=== PATIENT | male | born 1990 | race Caucasian/White ===

== ENCOUNTER 2018-12-21 13:04 | Emergency (ER) | payer OTHER ==
--- NOTE | 2018-12-21 13:51 | EDPHYS ---
Physician Documentation [facility] Name: Wyatt Gleason Age: 28 yrs Sex: Male : 1990 Arrival Date: 12/21/2018 Time: 13:08 Bed 9 Private MD: ED Physician Adam Tamayo HPI: 12/21 13:48 This 28 yrs old Male presents to ER via Ambulatory with complaints of jr8 Shoulder Pain. 13:48 The patient or guardian complains of pain, tenderness. right shoulder. Context: The jr8 problem was sustained at an unknown site, resulted from lifting or carrying, The patient reports no decreased range of motion. The patient reports no obvious deformity. Onset: The symptoms/episode began/occurred acutely, today. Modifying factors: the symptoms are alleviated by nothing. The symptoms are aggravated by movement. Associated signs and symptoms: The patient has no apparent associated signs or symptoms. Severity of symptoms: At their worst the symptoms were mild, in the emergency department the symptoms are unchanged. The patient has not experienced similar symptoms in the past. The patient has not recently seen a physician. Stated that while at work felt a pulling sensation in right shoulder. Pain since then. Denies numbness, tingling, weakness. Historical: - Allergies: 13:19 No Known Allergies; aa5 - Home Meds: 13:19 None [Active]; aa5 - PMHx: 13:19 None; aa5 - PSHx: 13:19 None; aa5 - Immunization history:: Adult Immunizations up to date. - Social history:: Smoking status: Patient uses tobacco products, smokes one-half pack cigarettes per day. - Ebola Screening: : No symptoms or risks identified at this time. ROS: 13:48 Eyes: Negative for injury, pain, redness, and discharge, ENT: Negative for injury, jr8 pain, and discharge, Neck: Negative for injury, pain, and swelling, Cardiovascular: Negative for chest pain, palpitations, and edema, Respiratory: Negative for shortness of breath, cough, wheezing, and pleuritic chest pain, Abdomen/GI: Negative for abdominal pain, nausea, vomiting, diarrhea, and constipation, Back: Negative for injury and pain, Skin: Negative for injury, rash, and discoloration, Neuro: Negative for headache, weakness, numbness, tingling, and seizure. 13:48 MS/extremity: Positive for pain, tenderness, of the right shoulder. Exam: 13:48 Eyes: Pupils equal round and reactive to light, extra-ocular motions intact. Lids and jr8 lashes normal. Conjunctiva and sclera are non-icteric and not injected. Cornea within normal limits. Periorbital areas with no swelling, redness, or edema. ENT: Nares patent. No nasal discharge, no septal abnormalities noted. Tympanic membranes are normal and external auditory canals are clear. Oropharynx with no redness, swelling, or masses, exudates, or evidence of obstruction, uvula midline. Mucous membranes moist. Neck: Trachea midline, no thyromegaly or masses palpated, and no cervical lymphadenopathy. Supple, full range of motion without nuchal rigidity, or vertebral point tenderness. No Meningismus. Cardiovascular: Regular rate and rhythm with a normal S1 and S2. No gallops, murmurs, or rubs. Normal PMI, no JVD. No pulse deficits. Respiratory: Lungs have equal breath sounds bilaterally, clear to auscultation and percussion. No rales, rhonchi or wheezes noted. No increased work of breathing, no retractions or nasal flaring. Abdomen/GI: Soft, non-tender, with normal bowel sounds. No distension or tympany. No guarding or rebound. No evidence of tenderness throughout. Back: No spinal tenderness. No costovertebral tenderness. Full range of motion. Skin: Warm, dry with normal turgor. Normal color with no rashes, no lesions, and no evidence of cellulitis. MS/ Extremity: Pulses equal, no cyanosis. Neurovascular intact. Full, normal range of motion. Mild pain to palpation of the anterior right shoulder Neuro: Awake and alert, GCS 15, oriented to person, place, time, and situation. Cranial nerves II-XII grossly intact. Motor strength 5/5 in all extremities. Sensory grossly intact. Cerebellar exam normal. Normal gait. Vital Signs: 13:19 BP 130 / 77; Pulse 75; Resp 16 S; Temp 97.6(TE); Pulse Ox 98% on R/A; Weight 96.16 kg aa5 (R); Height 5 ft. 9 in. (175.26 cm) (R); Pain 9/10; 13:19 Body Mass Index 31.31 (96.16 kg, 175.26 cm) aa5 MDM: 13:39 Patient medically screened. jr8 13:49 Data reviewed: vital signs, nurses notes, and as a result, I will discharge patient. jr8 Data interpreted: Pulse oximetry: on room air is 98 %. Interpretation: normal. Counseling: I had a detailed discussion with the patient and/or guardian regarding: the historical points, exam findings, and any diagnostic results supporting the discharge/admit diagnosis, the need for outpatient follow up, a orthopedic surgeon, to return to the emergency department if symptoms worsen or persist or if there are any questions or concerns that arise at home. ED course: No traumatic injury per patient. Most likely muscular strain to girdle of right shoulder. Will try NSAIDS for now and no heavy lifting for next week. If worse to come back. Otherwise needs to f/u with Orthopedics. Administered Medications: 14:10 Drug: TORadol - Ketorolac 15 mg Route: IM; Site: right deltoid; iw Disposition: 15:41 Co-signature as Attending Physician, Adam Tamayo MD I agree with the assessment and shari plan of care. Disposition: 12/21/18 13:51 Discharged to Home. Impression: Strain of muscle(s) and tendon(s) of the rotator cuff of right shoulder. - Condition is Stable. - Discharge Instructions: Muscle Strain. - Prescriptions for Mobic 15 mg Oral tablet - take 1 tablet by ORAL route once daily As needed; 20 tablet. - Work release form, Medication Reconciliation Form, Thank You Letter, Antibiotic Education, Prescription Opioid Use form. - Follow up: Gael Bingham MD; When: 7 - 10 days; Reason: If symptoms return, Recheck today's complaints, Continuance of care, Re-evaluation by your physician. - Problem is new. - Symptoms have improved. Signatures: Adam Tamayo MD MD cha Williams, Irene RN RN Malka Ho RN RN aa5 Marvin Quezada PA PA jr8 Corrections: (The following items were deleted from the chart) 14:30 13:51 12/21/2018 13:51 Discharged to Home. Impression: Strain of muscle(s) and iw tendon(s) of the rotator cuff of right shoulder. Condition is Stable. Forms are Medication Reconciliation Form, Thank You Letter, Antibiotic Education, Prescription Opioid Use. Follow up: Dr. Gael Bingham; When: 7 - 10 days; Reason: If symptoms return, Recheck today's complaints, Continuance of care, Re-evaluation by your physician. Problem is new. Symptoms have improved. jr8
--- NOTE | 2018-12-21 13:51 | ER ---
Nurse's Notes [facility] Name: Wyatt Gleason Age: 28 yrs Sex: Male : 1990 Arrival Date: 12/21/2018 Time: 13:08 Bed 9 Private MD: Diagnosis: Strain of muscle(s) and tendon(s) of the rotator cuff of right shoulder Presentation: 12/21 13:18 Presenting complaint: Patient states: right shoulder pain that began 4 or 5 days ago. aa5 Pt states "I was lifting some boxes today and I think I made the pain worse". Transition of care: patient was not received from another setting of care. Onset of symptoms was November 2018. Risk Assessment: Do you want to hurt yourself or someone else? Patient reports no desire to harm self or others. Initial Sepsis Screen: Does the patient meet any 2 criteria? No. Patient's initial sepsis screen is negative. Does the patient have a suspected source of infection? No. Patient's initial sepsis screen is negative. Care prior to arrival: None. 13:18 Method Of Arrival: Ambulatory aa5 13:18 Acuity: ERNESTO 4 aa5 Triage Assessment: 14:29 General: Appears in no apparent distress. Behavior is calm, cooperative. iw Historical: - Allergies: 13:19 No Known Allergies; aa5 - Home Meds: 13:19 None [Active]; aa5 - PMHx: 13:19 None; aa5 - PSHx: 13:19 None; aa5 - Immunization history:: Adult Immunizations up to date. - Social history:: Smoking status: Patient uses tobacco products, smokes one-half pack cigarettes per day. - Ebola Screening: : No symptoms or risks identified at this time. Screenin:29 Abuse screen: Denies threats or abuse. Denies injuries from another. Nutritional iw screening: No deficits noted. Tuberculosis screening: No symptoms or risk factors identified. Fall Risk None identified. Assessment: 14:00 General: Appears in no apparent distress. Behavior is calm, cooperative. Pain: iw Complains of pain in right shoulder. Neuro: Level of Consciousness is awake, alert, obeys commands, Moves all extremities. Cardiovascular: Patient's skin is warm and dry. Respiratory: Airway is patent Respiratory effort is even, unlabored. Derm: Skin is intact, is healthy with good turgor. Musculoskeletal: Range of motion: intact in all extremities, Reports pain in right shoulder. Vital Signs: 13:19 BP 130 / 77; Pulse 75; Resp 16 S; Temp 97.6(TE); Pulse Ox 98% on R/A; Weight 96.16 kg aa5 (R); Height 5 ft. 9 in. (175.26 cm) (R); Pain 9/10; 13:19 Body Mass Index 31.31 (96.16 kg, 175.26 cm) aa ED Course: 13:08 Patient arrived in ED. mr 13:17 Arm band placed on. aa5 13:18 Triage completed. aa5 13:39 Marvin Quezada PA is PHCP. jr8 13:39 Adam Tamayo MD is Attending Physician. jr8 13:51 Gael Bingham MD is Referral Physician. jr8 13:59 Lakesha Peña, RN is Primary Nurse. iw 14:00 Patient has correct armband on for positive identification. iw 14:29 No provider procedures requiring assistance completed. Patient did not have IV access iw during this emergency room visit. Administered Medications: 14:10 Drug: TORadol - Ketorolac 15 mg Route: IM; Site: right deltoid; iw Outcome: 13:51 Discharge ordered by . jr8 14:29 Discharged to home ambulatory, with friend. iw 14:29 Condition: good 14:29 Discharge instructions given to patient, friend, Instructed on discharge instructions, follow up and referral plans. medication usage, Demonstrated understanding of instructions, follow-up care, medications, Prescriptions given X 1. 14:30 Patient left the ED. iw Signatures: Elizabet Rain mr Lakesha Peña, RN RN iw Malka Strauss RN RN aa Marvin Quezada PA PA jr8
[2018-12-21] MEDS ORDERED: KETOROLAC 30 MG/ML INJ ONE (14:17)
== END 2018-12-21 14:30 | disposition home or self-care (01) ==
LOC: ER 13:04
DX: S46.011A Strain of muscle(s) and tendon(s) of the rotator cuff of right shoulder, initial encounter (principal); X50.9XXA Other and unspecified overexertion or strenuous movements or postures, initial encounter; F17.210 Nicotine dependence, cigarettes, uncomplicated
CPT/HCPCS: 96372; 99283

== ENCOUNTER 2019-01-02 14:57 | Emergency (ER) | payer OTHER ==
--- OUTSIDE RECORDS SUMMARY | 2019-01-02 15:11 | XMS REPORT ---
:1990 [facility] [address] [place] [address] [address] Care Team Providers Name Role Phone Unavailable Unavailable Unavailable Problems This patient has no known problems. Allergies, Adverse Reactions, Alerts This patient has no known allergies or adverse reactions. Medications This patient has no known medications.
--- NOTE | 2019-01-02 15:24 | ER ---
Nurse's Notes [facility] Name: Wyatt Gleason Age: 28 yrs Sex: Male : 1990 Arrival Date: 01/02/2019 Time: 14:59 Bed 15 Private MD: Diagnosis: Pain in right shoulder Presentation: 01/02 15:03 Presenting complaint: Patient states: Right arm and shoulder pain for 2 weeks. Seen in aj this ER for same complaint, missed follow up appointment. Full ROM noted in triage. Transition of care: patient was not received from another setting of care. Onset of symptoms was December 12, 2018. Care prior to arrival: None. 15:03 Method Of Arrival: Ambulatory 15:03 Acuity: ERNESTO 5 15:05 Risk Assessment: Do you want to hurt yourself or someone else? Patient reports no hj desire to harm self or others. Initial Sepsis Screen: Does the patient meet any 2 criteria? No. Patient's initial sepsis screen is negative. Does the patient have a suspected source of infection? No. Patient's initial sepsis screen is negative. Triage Assessment: 15:05 General: Appears in no apparent distress. comfortable, Behavior is calm, cooperative, aj appropriate for age. Pain: Complains of pain in right arm. Neuro: Level of Consciousness is awake, alert, obeys commands, Oriented to person, place, time, situation, Appropriate for age. Respiratory: Airway is patent Respiratory effort is even, unlabored, Respiratory pattern is regular, symmetrical. Derm: Skin is intact, is healthy with good turgor, Skin is pink, warm \T\ dry. normal. Musculoskeletal: Reports pain in right arm. Historical: - Allergies: 15:05 No Known Allergies; aj - Immunization history:: Adult Immunizations unknown. - Social history:: Smoking status: Patient uses tobacco products, Patient uses alcohol. - Ebola Screening: : Patient negative for fever greater than or equal to 101.5 degrees Fahrenheit, and additional compatible Ebola Virus Disease symptoms Patient denies exposure to infectious person Patient denies travel to an Ebola-affected area in the 21 days before illness onset. Screenin:17 Abuse screen: Denies threats or abuse. Denies injuries from another. Nutritional hj screening: No deficits noted. Tuberculosis screening: No symptoms or risk factors identified. Fall Risk None identified. Assessment: 15:05 General: Appears in no apparent distress. uncomfortable, Behavior is calm, cooperative, hj appropriate for age. Pain: Complains of pain in right arm. Neuro: Level of Consciousness is awake, alert, obeys commands, Oriented to person, place, time, situation, Appropriate for age. Cardiovascular: Capillary refill < 3 seconds Patient's skin is warm and dry. Respiratory: Airway is patent Respiratory effort is even, unlabored, Respiratory pattern is regular, symmetrical. GI: No signs and/or symptoms were reported involving the gastrointestinal system. : No signs and/or symptoms were reported regarding the genitourinary system. EENT: No signs and/or symptoms were reported regarding the EENT system. Derm: No signs and/or symptoms reported regarding the dermatologic system. Musculoskeletal: No signs and/or symptoms reported regarding the musculoskeletal system. Vital Signs: 15:05 BP 149 / 88; Pulse 91; Resp 16; Temp 98.2; Pulse Ox 98% on R/A; Weight 95.25 kg; Height aj 5 ft. 9 in. (175.26 cm); 15:28 BP 140 / 85; Pulse 89; Resp 18; Pulse Ox 100% on R/A; hj 15:05 Body Mass Index 31.01 (95.25 kg, 175.26 cm) aj ED Course: 14:59 Patient arrived in ED. tw3 15:05 Triage completed. aj 15:05 Arm band placed on left wrist. Patient placed in an exam room. aj 15:05 Patient has correct armband on for positive identification. Bed in low position. Call hj light in reach. Side rails up X 1. 15:08 Rhona Jackson FNP-C is [facility]. kb 15:08 Adam Tamayo MD is Attending Physician. kb 15:10 Garcia Middleton, MESFIN is Primary Nurse. hj 15:23 Sling applied to right arm. jb1 15:27 No provider procedures requiring assistance completed. Patient did not have IV access hj during this emergency room visit. Administered Medications: No medications were administered Outcome: 15:24 Discharge ordered by . kb 15:28 Discharged to home ambulatory, with family. hj 15:28 Condition: stable 15:28 Discharge instructions given to patient, family, Instructed on discharge instructions, follow up and referral plans. medication usage, Demonstrated understanding of instructions, follow-up care, medications, Prescriptions given X 1. 15:28 Patient left the ED. hj Signatures: Johnathan Petty jb1 Rhona Jackson, ELIJAH RICKETTS-Ellie Martinez, RN RN Garcia Burris RN RN Angie Manning tw3
--- NOTE | 2019-01-02 15:25 | EDPHYS ---
Physician Documentation [facility] Name: Wyatt Gleason Age: 28 yrs Sex: Male : 1990 Arrival Date: 01/02/2019 Time: 14:59 Bed 15 Private MD: ED Physician Adam Tamayo HPI: 01/02 15:23 This 28 yrs old Male presents to ER via Ambulatory with complaints of kb Shoulder Pain. 15:23 The patient or guardian complains of pain, that is acute, tenderness. right shoulder. kb Context: The problem was sustained at an unknown site, resulted from an unknown reason, The patient reports no decreased range of motion. The patient reports no obvious deformity. Onset: The symptoms/episode began/occurred 2 week(s) ago. Modifying factors: the symptoms are alleviated by nothing. The symptoms are aggravated by raising arm all the way up. Associated signs and symptoms: The patient has no apparent associated signs or symptoms. Severity of symptoms: At their worst the symptoms were moderate, in the emergency department the symptoms are unchanged. Treatment prior to arrival includes: no previous treatment. The patient has not experienced similar symptoms in the past. The patient has been recently seen at the [facility] Emergency Department, a couple of weeks ago, for similar complaints. Historical: - Allergies: 15:05 No Known Allergies; aj - Immunization history:: Adult Immunizations unknown. - Social history:: Smoking status: Patient uses tobacco products, Patient uses alcohol. - Ebola Screening: : Patient negative for fever greater than or equal to 101.5 degrees Fahrenheit, and additional compatible Ebola Virus Disease symptoms Patient denies exposure to infectious person Patient denies travel to an Ebola-affected area in the 21 days before illness onset. ROS: 15:18 Constitutional: Negative for fever, chills, and weight loss, Cardiovascular: Negative kb for chest pain, palpitations, and edema, Respiratory: Negative for shortness of breath, cough, wheezing, and pleuritic chest pain, Abdomen/GI: Negative for abdominal pain, nausea, vomiting, diarrhea, and constipation, Skin: Negative for injury, rash, and discoloration, Neuro: Negative for headache, weakness, numbness, tingling, and seizure. 15:18 MS/extremity: Positive for pain, tenderness, of the anterior aspect of right shoulder. Exam: 15:18 Constitutional: This is a well developed, well nourished patient who is awake, alert, kb and in no acute distress. Head/Face: Normocephalic, atraumatic. Chest/axilla: Normal chest wall appearance and motion. Nontender with no deformity. No lesions are appreciated. Cardiovascular: Regular rate and rhythm with a normal S1 and S2. No gallops, murmurs, or rubs. Normal PMI, no JVD. No pulse deficits. Respiratory: Lungs have equal breath sounds bilaterally, clear to auscultation and percussion. No rales, rhonchi or wheezes noted. No increased work of breathing, no retractions or nasal flaring. Abdomen/GI: Soft, non-tender, with normal bowel sounds. No distension or tympany. No guarding or rebound. No evidence of tenderness throughout. Skin: Warm, dry with normal turgor. Normal color with no rashes, no lesions, and no evidence of cellulitis. Neuro: Awake and alert, GCS 15, oriented to person, place, time, and situation. Cranial nerves II-XII grossly intact. Motor strength 5/5 in all extremities. Sensory grossly intact. Cerebellar exam normal. Normal gait. 15:18 Musculoskeletal/extremity: Extremities: grossly normal except: noted in the anterior aspect of right shoulder: pain, tenderness, ROM: full active range of motion, in all extremities, limited active range of motion due to pain, in the anterior aspect of right shoulder, Circulation is intact in all extremities. Sensation intact. Vital Signs: 15:05 BP 149 / 88; Pulse 91; Resp 16; Temp 98.2; Pulse Ox 98% on R/A; Weight 95.25 kg; Height aj 5 ft. 9 in. (175.26 cm); 15:28 BP 140 / 85; Pulse 89; Resp 18; Pulse Ox 100% on R/A; 15:05 Body Mass Index 31.01 (95.25 kg, 175.26 cm) [facility]: 15:09 Patient medically screened. kb 15:19 Data reviewed: vital signs, nurses notes. Data interpreted: Pulse oximetry: on room air kb is 98 %. Interpretation: normal. Counseling: I had a detailed discussion with the patient and/or guardian regarding: the historical points, exam findings, and any diagnostic results supporting the discharge/admit diagnosis, the need for outpatient follow up, a orthopedic surgeon, to return to the emergency department if symptoms worsen or persist or if there are any questions or concerns that arise at home. ED course: Pt has full ROM of shoulder. Reports pain when fully extended. No injury reported. Recommended follow up with orthopedist. 01/02 15:22 Order name: Damian; Complete Time: 15:24 kb Administered Medications: No medications were administered Disposition: 01/02/19 15:24 Discharged to Home. Impression: Pain in right shoulder. - Condition is Stable. - Discharge Instructions: Rotator Cuff Injury, Shoulder Pain, [id number]. - Prescriptions for Cyclobenzaprine 10 mg Oral Tablet - take 1 tablet by ORAL route every 8 hours As needed; 21 tablet. - Medication Reconciliation Form, Thank You Letter, Antibiotic Education, Prescription Opioid Use, Work release form form. - Follow up: Emergency Department; When: As needed; Reason: Worsening of condition. Follow up: Private Physician; When: 2 - 3 days; Reason: Recheck today's complaints, Continuance of care, Re-evaluation by your physician. Signatures: Rhona Jackson, CURTAIN INSPECTOR-C CURTAIN INSPECTOR-Ckb Ellie Gillespie, RN RN Garcia Burris RN RN hj Corrections: (The following items were deleted from the chart) 15:23 15:19 ED course: Pt has full ROM of shoulder. Reports pain when fully extended. kb kb 15:28 15:24 01/02/2019 15:24 Discharged to Home. Impression: Pain in right shoulder. hj Condition is Stable. Forms are Work release form, Medication Reconciliation Form, Thank You Letter, Antibiotic Education, Prescription Opioid Use. Follow up: Emergency Department; When: As needed; Reason: Worsening of condition. Follow up: Private Physician; When: 2 - 3 days; Reason: Recheck today's complaints, Continuance of care, Re-evaluation by your physician. kb
== END 2019-01-02 15:28 | disposition home or self-care (01) ==
LOC: ER 14:57
DX: M25.511 Pain in right shoulder (principal); Z72.0 Tobacco use
CPT/HCPCS: 99283

== ENCOUNTER 2019-02-21 18:26 | Emergency (ER) | payer OTHER ==
--- OUTSIDE RECORDS SUMMARY | 2019-02-21 18:28 | XMS REPORT ---
:1990 [facility] Address [address] [place] [address] Dr. Fragoso [address] [place] [id number] Care Team Providers Name Role Phone Unavailable Unavailable Unavailable Problems This patient has no known problems. Allergies, Adverse Reactions, Alerts This patient has no known allergies or adverse reactions. Medications This patient has no known medications.
--- NOTE | 2019-02-21 19:04 | ER ---
Nurse's Notes [facility] Name: Wyatt Gleason Age: 28 yrs Sex: Male : 1990 Arrival Date: 02/21/2019 Time: 18:27 Bed 16 Private MD: None, None Diagnosis: Pain in right shoulder Presentation: 02/21 18:34 Presenting complaint: Patient states: i got off work yesterday and i think i might have hj pulled a muscle on my R arm, R shoulder down to the R wrist area; pain is 9/10; requesting for work release note;. Transition of care: patient was not received from another setting of care. Onset of symptoms was February 21, 2019. Risk Assessment: Do you want to hurt yourself or someone else? Patient reports no desire to harm self or others. Initial Sepsis Screen: Does the patient meet any 2 criteria? No. Patient's initial sepsis screen is negative. Does the patient have a suspected source of infection? No. Patient's initial sepsis screen is negative. Care prior to arrival: None. 18:34 Method Of Arrival: Ambulatory 18:34 Acuity: ERNESTO 4 hj Historical: - Allergies: 18:36 No Known Allergies; hj - PMHx: 18:36 None; hj - PSHx: 18:36 None; hj - Immunization history:: Adult Immunizations unknown. - Social history:: Smoking status: unknown. - Ebola Screening: : Patient negative for fever greater than or equal to 101.5 degrees Fahrenheit, and additional compatible Ebola Virus Disease symptoms Patient denies exposure to infectious person Patient denies travel to an Ebola-affected area in the 21 days before illness onset. Screenin:00 Abuse screen: Denies threats or abuse. Denies injuries from another. Nutritional rr5 screening: No deficits noted. Tuberculosis screening: No symptoms or risk factors identified. Fall Risk None identified. Total Sheffield Fall Scale indicates No Risk (0-24 pts). Assessment: 19:00 General: Appears in no apparent distress. comfortable, Behavior is calm, cooperative, rr5 appropriate for age. Pain: Complains of pain in right shoulder Pain radiates to right arm Pain currently is 9 out of 10 on a pain scale. Quality of pain is described as aching, Pain began suddenly, Is intermittent. Neuro: Level of Consciousness is awake, alert, obeys commands, Oriented to person, place, time, situation, Appropriate for age. Cardiovascular: Capillary refill < 3 seconds Patient's skin is warm and dry. Respiratory: Airway is patent Respiratory effort is even, unlabored, Respiratory pattern is regular, symmetrical. GI: No signs and/or symptoms were reported involving the gastrointestinal system. : No signs and/or symptoms were reported regarding the genitourinary system. EENT: No signs and/or symptoms were reported regarding the EENT system. Derm: Skin is intact, Skin temperature is warm. Musculoskeletal: Circulation, motion, and sensation intact. Capillary refill < 3 seconds, Reports pain in right shoulder. 19:18 Reassessment: Patient appears in no apparent distress at this time. Patient is alert, rr5 oriented x 3, equal unlabored respirations, skin warm/dry/pink. discharge instruction given and explained without complaints made. Vital Signs: 18:36 BP 119 / 76; Pulse 73; Resp 18; Temp 98.0; Pulse Ox 99% on R/A; Weight 92.99 kg; Height hj 5 ft. 9 in. (175.26 cm); Pain 9/10; 19:10 BP 121 / 70; Pulse 75; Resp 16; Pulse Ox 99% on R/A; rr5 18:36 Body Mass Index 30.27 (92.99 kg, 175.26 cm) ED Course: 18:27 Patient arrived in ED. dl4 18:28 None, None is Private Physician. dl4 18:35 Triage completed. hj 18:36 Arm band placed on left wrist. hj 18:40 Marquis Reardon RN is Primary Nurse. jl7 18:43 [facility]ona Jackson F[facility]-C [facility]. kb 18:43 Nomi Anderson MD is Attending Physician. kb 19:00 Patient has correct armband on for positive identification. rr5 19:00 No provider procedures requiring assistance completed. Patient did not have IV access rr5 during this emergency room visit. Administered Medications: No medications were administered Outcome: 19:04 Discharge ordered by . kb 19:16 Discharged to home ambulatory. rr5 19:16 Condition: stable 19:16 Discharge instructions given to patient, Instructed on discharge instructions, follow rr5 up and referral plans. medication usage, Demonstrated understanding of instructions, follow-up care, medications, Prescriptions given X 2. 19:19 Patient left the ED. rr5 Signatures: Rhona Jackson, ELIJAH AUTO DAMAGE ESTIMATOR-Garcia Yates RN RN hj Marquis Reardon RN RN jl7 Marcial Louie, MESFIN RN rr5 Calos Damon dl4 Corrections: (The following items were deleted from the chart) 18:37 18:34 Presenting complaint: Patient states: i got off work yesterday and i think i hj might have pulled a muscle on my R arm, R shoulder down to the R wrist area; pain is 9/10; hj 18:37 18:36 Pulse 73bpm; Resp 18bpm; Pulse Ox 99% RA; Temp 98.0F; 92.99 kg; Height 5 ft. 9 hj in.; BMI: 30.2; Pain 9/10; hj
--- NOTE | 2019-02-21 19:04 | EDPHYS ---
Physician Documentation [facility] Name: Wyatt Gleason Age: 28 yrs Sex: Male : 1990 Arrival Date: 02/21/2019 Time: 18:27 Bed 16 Private MD: None, None ED Physician Nomi Anderson HPI: 02/21 19:17 This 28 yrs old Male presents to ER via Ambulatory with complaints of Arm kb Pain. 19:17 The patient or guardian complains of pain, that is acute. right shoulder. Context: The kb problem was sustained outdoors, resulted from lifting or carrying, a heavy object, The patient reports no decreased range of motion. The patient reports no obvious deformity. Onset: The symptoms/episode began/occurred yesterday. Modifying factors: the symptoms are alleviated by nothing. The symptoms are aggravated by movement. Associated signs and symptoms: The patient has no apparent associated signs or symptoms. Severity of symptoms: At their worst the symptoms were mild, moderate, in the emergency department the symptoms are unchanged. Treatment prior to arrival includes: no previous treatment. The patient has not experienced similar symptoms in the past. The patient has not recently seen a physician. Pt reports he was lifting something heavy with his father yesterday and when they were setting it down, his side missed a brick and pulled his shoulder with it. States he is able to move it, but has pain with raising it completely up. States his boss noticed he was favoring his shoulder when lifting plywood today and told him he had to have a work note to return tomorrow. Historical: - Allergies: 18:36 No Known Allergies; hj - PMHx: 18:36 None; hj - PSHx: 18:36 None; hj - Immunization history:: Adult Immunizations unknown. - Social history:: Smoking status: unknown. - Ebola Screening: : Patient negative for fever greater than or equal to 101.5 degrees Fahrenheit, and additional compatible Ebola Virus Disease symptoms Patient denies exposure to infectious person Patient denies travel to an Ebola-affected area in the 21 days before illness onset. ROS: 19:15 Constitutional: Negative for fever, chills, and weight loss, Neck: Negative for injury, kb pain, and swelling, Cardiovascular: Negative for chest pain, palpitations, and edema, Respiratory: Negative for shortness of breath, cough, wheezing, and pleuritic chest pain, Abdomen/GI: Negative for abdominal pain, nausea, vomiting, diarrhea, and constipation, Skin: Negative for injury, rash, and discoloration, Neuro: Negative for headache, weakness, numbness, tingling, and seizure. 19:15 MS/extremity: Positive for pain, of the anterior aspect of right shoulder. Exam: 19:15 Constitutional: This is a well developed, well nourished patient who is awake, alert, kb and in no acute distress. Head/Face: Normocephalic, atraumatic. ENT: Nares patent. No nasal discharge, no septal abnormalities noted. Tympanic membranes are normal and external auditory canals are clear. Oropharynx with no redness, swelling, or masses, exudates, or evidence of obstruction, uvula midline. Mucous membranes moist. Neck: Trachea midline, no thyromegaly or masses palpated, and no cervical lymphadenopathy. Supple, full range of motion without nuchal rigidity, or vertebral point tenderness. No Meningismus. Chest/axilla: Normal chest wall appearance and motion. Nontender with no deformity. No lesions are appreciated. Cardiovascular: Regular rate and rhythm with a normal S1 and S2. No gallops, murmurs, or rubs. Normal PMI, no JVD. No pulse deficits. Respiratory: Lungs have equal breath sounds bilaterally, clear to auscultation and percussion. No rales, rhonchi or wheezes noted. No increased work of breathing, no retractions or nasal flaring. Abdomen/GI: Soft, non-tender, with normal bowel sounds. No distension or tympany. No guarding or rebound. No evidence of tenderness throughout. Back: No spinal tenderness. No costovertebral tenderness. Full range of motion. Skin: Warm, dry with normal turgor. Normal color with no rashes, no lesions, and no evidence of cellulitis. MS/ Extremity: Pulses equal, no cyanosis. Neurovascular intact. Full, normal range of motion. Neuro: Awake and alert, GCS 15, oriented to person, place, time, and situation. Cranial nerves II-XII grossly intact. Motor strength 5/5 in all extremities. Sensory grossly intact. Cerebellar exam normal. Normal gait. Vital Signs: 18:36 BP 119 / 76; Pulse 73; Resp 18; Temp 98.0; Pulse Ox 99% on R/A; Weight 92.99 kg; Height hj 5 ft. 9 in. (175.26 cm); Pain 9/10; 19:10 BP 121 / 70; Pulse 75; Resp 16; Pulse Ox 99% on R/A; rr5 18:36 Body Mass Index 30.27 (92.99 kg, 175.26 cm) MDM: 18:43 Patient medically screened. kb 19:15 Data reviewed: vital signs, nurses notes. Data interpreted: Pulse oximetry: on room air kb is 99 %. Interpretation: normal. Counseling: I had a detailed discussion with the patient and/or guardian regarding: the historical points, exam findings, and any diagnostic results supporting the discharge/admit diagnosis, the need for outpatient follow up, a orthopedic surgeon, to return to the emergency department if symptoms worsen or persist or if there are any questions or concerns that arise at home. Administered Medications: No medications were administered Disposition: 02/22 06:56 Co-signature as Attending Physician, Nomi Anderson MD. rn Disposition: 02/21/19 19:04 Discharged to Home. Impression: Pain in right shoulder. - Condition is Stable. - Discharge Instructions: Shoulder Pain, [id number]. - Prescriptions for Cyclobenzaprine 10 mg Oral Tablet - take 1 tablet by ORAL route every 8 hours As needed; 21 tablet. Diclofenac Sodium 75 mg Oral Tablet, Delayed Release (E.C.) - take 1 tablet by ORAL route 2 times per day As needed; 30 tablet. - Work release form, Medication Reconciliation Form, Thank You Letter, Antibiotic Education, Prescription Opioid Use form. - Follow up: Emergency Department; When: As needed; Reason: Worsening of condition. Follow up: Private Physician; When: 2 - 3 days; Reason: Recheck today's complaints, Continuance of care, Re-evaluation by your physician. Signatures: Rhona Jackson, NATURAL FOODS CLERK-C NATURAL FOODS CLERK-Ckb Nomi Anderson MD MD rn Joaquin, Henry, RN RN hj Roque, Raymond, RN RN rr5 Corrections: (The following items were deleted from the chart) 02/21 19:19 19:04 02/21/2019 19:04 Discharged to Home. Impression: Pain in right shoulder. rr5 Condition is Stable. Forms are Medication Reconciliation Form, Thank You Letter, Antibiotic Education, Prescription Opioid Use. Follow up: Emergency Department; When: As needed; Reason: Worsening of condition. Follow up: Private Physician; When: 2 - 3 days; Reason: Recheck today's complaints, Continuance of care, Re-evaluation by your physician. kb
== END 2019-02-21 19:19 | disposition home or self-care (01) ==
LOC: ER 18:26
DX: M25.511 Pain in right shoulder (principal)
CPT/HCPCS: 99282

== ENCOUNTER 2023-11-28 21:16 | Emergency (ER) | payer BC, OTHER ==
--- OUTSIDE RECORDS SUMMARY | 2023-11-28 21:19 | XMS REPORT | Continuity of Care Document ---
Author Name Unknown Address [address] [facility]. 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 Name Role Phone CONNIE TITUS Primary Care Physician Unavailable ROBERTO TREVIÑO Attending Clinician Unavailable CONNIE TITUS Attending Clinician Yessenia vailaMATT Ward Attending Clinician Unavailable [place], MIKI Attending Clinician Unavailable Matt Escobar MD Attending Clinician [phone] Cristina Mccurdy RN Attending Clinician UnavailConnie Florian MD Attending Clinician Doctor Unassigned, [place] Attending Clinician U navailable Lab, Ang - Db Attending Clinician Unavailable Roberto Scherer Attending Clinician [phone] Payers Payer Name Policy Type Policy Number Effective Date Expirati on Date Source [facility] [id number] 2023 00:00:00 Problems Condition Name Condition Details Condition Category Status Onset Date Resolution Date Last Treatment Date Treating Clinician Comments Source Chest pain, unspecifie d type Chest pain, unspecifie d type Disease Active 11-25 00:00: 00 [facility] Cigarette smoker Cigarette smoker Disease Active 11-25 00:00: 00 [facility] Elevated blood pressure reading Elevated blood pressure reading Disease Active 11-25 00:00: 00 [facility] Obesity (BMI 30-39.9) Obesity (BMI 30-39.9) Disease Active 11-25 00:00: 00 [facility] Attention deficit hyperactiv ity disorder (ADHD), unspecifie d ADHD type Attention deficit hyperactiv ity disorder (ADHD), unspecifie d ADHD type Disease Active 10-14 00:00: 00 [facility] 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 Disease Active 10-14 00:00: 00 [facility] Anxiety and depression Anxiety and depression Disease Active 10-14 00:00: 00 [facility] Mood disorder Mood disorder Disease Active 10-14 00:00: 00 [facility] Right ankle pain Right ankle pain Disease Active 2014-07 00:00: 00 [facility] Allergies, Adverse Reactions, Alerts Allergy Name Allergy Type Status Severity Reaction(s) Onset Date Inactive Date Treating Clinician Comments Source NO KNOWN ALLERGIE S Drug Class Active [facility] Social History Social Habit Start Date Stop Date Quantity Comments Source History of tobacco use Smokes tobacco daily [facility] intake 2023-11-26 00:00:00 2023-11-26 00:00:00 0 /d [facility] History of Social function 2023-10-15 00:00:00 2023-10-15 00:00:00 [facility] Sex Assigned At 1990 00:00:00 1990 00:00:00 [facility] Smoking Status Start Date Stop Date Source Smokes tobacco daily 2015-05-02 00:00:00 [facility] Medications Ordered Medication Name Filled Medication Name Start Date Stop Date Current Medication? Ordering Clinician Indication Dosage Frequency Signature (SIG) Comments Components Source escitalopra m oxalate (LEXAPRO) 10 mg tablet 11-22 00:00: 00 Yes [id number] 10mg Take 1 tablet by mouth in the morning. [facility] traZODone 50 mg tablet 11-22 00:00: 00 Yes [id number] 50mg Take 1 tablet by mouth at bedtime. [facility] ARIPiprazol e 15 mg tablet 10-18 00:00: 00 11-22 00:00 :00 No [id number] 15mg Take 1 tablet by mouth in the morning. [facility] ACETAMINOPH EN WITH CODEINE (TYLENOL-CO DEINE #3 ORAL) 10-14 14:58: 58 Yes Take by mouth. [facility] ARIPiprazol e 15 mg tablet 10-14 00:00: 00 Yes [id number] 15mg Take 1 tablet by mouth in the morning. [facility] fluticasone propionate 50 mcg/actuati on nasal spray 09-26 00:00: 00 11-22 00:00 :00 No 2{spray } Use 2 Sprays in each nostril once daily as needed. [facility] IBUPROFEN ORAL 2014-07 008 10:52: 15 11-22 00:00 :00 No Take by mouth. [facility] Vital Signs Vital Name Observation Time Observation Value Comments S ource Systolic blood pressure 2023-11-26 15:33:00 138 mm[Hg] [facility] Diastolic blood pressure 2023-11-26 15:33:00 90 mm[Hg] [facility] Heart rate 2023-11-26 15:33:00 78 /min [facility] Oxygen saturation in Arterial blood by Pulse oximetry 2023-11-26 15:33:00 96 /min [facility] Respiratory rate 2023-11-26 15:30:00 18 /min [facility] Body height 2023-11-26 15:30:00 175.3 cm [facility] Body weight 2023-11-26 15:30:00 99.701 kg [facility] BMI 2023-11-26 15:30:00 32.46 kg/m2 [facility] Systolic blood pressure 2023-11-23 15:18:00 132 mm[Hg] [facility] Diastolic blood pressure 2023-11-23 15:18:00 91 mm[Hg] [facility] Heart rate 2023-11-23 15:00:00 85 /min [facility] Respiratory rate 2023-11-23 15:00:00 18 /min [facility] Body height 2023-11-23 15:00:00 175.3 cm [facility] Body weight 2023-11-23 15:00:00 100.608 kg [facility] BMI 2023-11-23 15:00:00 32.75 kg/m2 [facility] Oxygen saturation in Arterial blood by Pulse oximetry 2023-11-23 15:00:00 97 /min [facility] Systolic blood pressure 2023-10-15 19:57:00 129 mm[Hg] [facility] Diastolic blood pressure 2023-10-15 19:57:00 79 mm[Hg] [facility] Heart rate 2023-10-15 19:57:00 73 /min [facility] Body height 2023-10-15 19:57:00 175.3 cm [facility] Body weight 2023-10-15 19:57:00 105.28 kg [facility] BMI 2023-10-15 19:57:00 34.28 kg/m2 [facility] Oxygen saturation in Arterial blood by Pulse oximetry 2023-10-15 19:57:00 98 /min [facility] Procedures Procedure Date / Time Performed Performing Clinicia n Source ASSIGNMENT OF BENEFITS 2023-10-15 19:48:39 Docto r Unassigned, [place] [facility] Encounters Start Date/Time End Date/Time Encounter Type Admission Type Attending Clinicians Care Facility Care Department Encounter ID Source 2023-12-01 00:00:00 2023-12-01 00:00:00 Outpatient MATT MALIK [facility] [id number] [facility] 2023-11-29 10:00:00 2023-11-29 10:00:00 Outpatient MIKI SINGH [facility] [id number] [facility] 2023-11-26 10:20:00 2023-11-26 10:56:24 [facility] [id number] [facility] 2023-11-26 10:20:00 2023-11-26 10:56:24 Office Visit Matt Escobar [facility] 1.840.114 350.1.13.10 4.2.7.2.686 [id number] [facility] 2023-11-25 00:00:00 2023-11-25 00:00:00 Nurse Triage Cristina Mccurdy [facility] 1..114 350.1.13.10 4.2.7.2.686 [id number] [id number] [facility] 2023-11-24 14:40:00 2023-11-24 14:40:00 Outpatient R CONNIE TITUS [facility] [id number] [facility] 2023-11-24 10:50:17 2023-11-24 10:50:17 Outpatient [facility] [id number] Ralph So Saul 2023-11-23 10:20:00 2023-11-23 10:40:34 Outpatient R CONNIE TITUS [facility] [id number] [facility] 2023-11-23 10:20:00 2023-11-23 10:40:34 Office Visit Connie Titus [facility] 1..114 350.1.13.10 4.2.7.2.686 [id number] [id number] [facility] 2023-11-23 00:00:00 2023-11-23 00:00:00 Telephone Connie Titus [facility] 1.840.114 350.1.13.10 4.2.7.2.686 [id number] [facility] 2023-11-17 15:20:00 2023-11-17 15:20:00 Outpatient R CONNIE TITUS [facility] [id number] [facility] 2023-11-15 00:00:00 2023-11-15 00:00:00 Telephone Connie Titus [facility] 1.2.840.114 350.1.13.10 4.2.7.2.686 [id number] [facility] 2023-11-03 15:30:00 2023-11-03 15:30:00 Outpatient ROBERTO ADKINS [facility] [id number] [facility] 2023-10-20 00:00:00 2023-10-20 00:00:00 Letter (Out) [address]840[address]114 350.1.13.10 4.2.7.2.686 [id number] [id number] [facility] 2023-10-20 00:00:00 2023-10-20 00:00:00 Letter (Out) [address]114 350.1.13.10 4.2.7.2.686 [id number] 019 [id number] [facility] 2023-10-20 00:00:00 2023-10-20 00:00:00 Patient Secure Msg Doctor Unassigned, [place] [facility] 1.2.840.114 350.1.13.10 4.2.7.2.686 [id number] [id number] [facility] 2023-10-15 15:00:00 2023-10-15 17:22:51 Outpatient ROBERTO ADKINS [facility] [id number] [facility] 2023-10-15 15:45:00 2023-10-15 16:12:28 Risk Control Manager Visit Lab, Roberto Solorio [facility] 1.284.114 350.1.13.10 4.2.7.2.686 [id number] [facility] 2023-10-15 15:00:00 2023-10-15 15:30:00 Office Visit Roberto Treviño [facility] 1.284.114 350.1.13.10 4.2.7.2.686 [id number] [id number] [facility] 2023-10-15 00:00:00 2023-10-15 00:00:00 Orders Only Doctor Unassigned, [place] [facility] 1.2840.114 350.1.13.10 4.2.7.2.686 [id number] [facility] 2023-06-25 10:34:08 2023-06-25 10:34:08 [facility] [id number] Ralph Hughes Results Test Description Test Time Test Comments Results Result Co mments Source HEMOGLOBIN [id number] 09:36:16* Test Item Value Reference Range Interpretation Comme [facility] HEMOGLOBIN A1c (test code = 24627) 5.5 % 4.2-5.6 TSH, THIRD [id number] 08:13:19* Test Item Value Reference Range Interpretation Comme [facility] TSH, THIRD GENERATION (test code = 2821) 3.960 UIU/ML 0.400-4.100 COMPREHENSIVE METABOLIC [id number] 06:45:57* Test Item Value Reference Range Interpretation Comme [facility] GLUCOSE (test code = 2217) 82 MG/DL 70-99 BUN (test code = 2208) 10 MG/DL 6-20 CREATININE (test code = 2214) 1.13 MG/DL 0.80-1.40 eGFR (2020 CKD-EPI) (test code = 95642) 89 ML/MIN/1.73 >60 CALC BUN/CREAT (test code = 2235) 9 RATIO 6-28 SODIUM (test code = 2231) 141 MEQ/L 133-146 POTASSIUM (test code = 2228) 4.1 MEQ/L 3.5-5.4 CHLORIDE (test code = 2214) 104 MEQ/L 95-107 CARBON DIOXIDE (test code = 2205) 23 MEQ/L 19-31 CALCIUM (test code = 2208) 9.5 MG/DL 8.5-10.5 PROTEIN, TOTAL (test code = 2228) 7.2 G/DL 6.1-8.3 ALBUMIN (test code = 2200) 4.6 G/DL 3.5-5.2 CALC GLOBULIN (test code = 0) 2.6 G/DL 1.9-3.7 CALC A/G RATIO (test code = 2233) 1.8 RATIO 1.0-2.6 BILIRUBIN, TOTAL (test code = 2206) 0.3 MG/DL See_Comment [Automated me ssage] The system which generated this result transmitted reference range: <=1.2. The reference range was not used to interpret this result as normal/abnormal. ALKALINE PHOSPHATASE (test code = 2203) 89 U/L 40-112 AST (test code = 2217) 22 U/L 9-50 ALT (test code = 2218) 31 U/L 5-50 LIPID [id number] 06:45:57* Test Item Value Reference Range Interpretation Comme nts CHOLESTEROL (test code = 0) 157 MG/DL <200 TRIGLYCERIDES (test code = 2231) 233 MG/DL <150 H HDL CHOLESTEROL (test code = 2219) 28 MG/DL >39 L CALC LDL CHOL (test code = 2236) 97 MG/DL <100 NOTE: CALCULATED LDL IS BASED ON BOBBY-SUERO METHOD WHICHINCLUDES ADJUSTABLE TRIGLYCERIDE:VLDL CHOLESTEROL RATIO.THIS FACTOR VARIES BY MEASURED TRIGLYCERIDE AND NON-HDLCHOLESTEROL CONCENTRATIONS WITH INCREASED CALCULATED LDL SEENIN HIGHER TRIGLYCERIDE OR LOWER NON-HDL SPECIMENS. FOR MOREINFORMATION, SEE CLIENT ANNOUNCEMENT AT [email or web address] RISK RATIO LDL/HDL (test code = 2237) 3.46 RATIO <3.55 VITAMIN D, 25 [id number] 06:02:09* Test Item Value Reference Range Interpretation Comme nts VITAMIN D, 25 OH (test code = 4958) 26 NG/ML SEE BELOW L NOTE: 25-HYDR OXYVITAMIN D ASSAY INCLUDES 25-HYDROXYVITAMIN D2 AND D3. METHODOLOGY IS CHEMILUMINESCENT IMMUNOASSAY. INTERPRETIVE RANGES PEDIATRIC (<17 YEARS) . . . . . . . . . . . NG/ML 20-100ADULT: INSUFFICIENT . . . . . . . . . . . . . . NG/ML <20 SUBOPTIMAL . . . . . . . . . . . . . . . NG/ML 20-29 OPTIMAL . . . . . . . . . . . . . . . . . NG/ML 30-100 UNLESS OTHERWISE INDICATED, ALL TESTING PERFORMED [facility] [email or web address] [address] [place] [address] V GROOVE CUTTER: SHONA REGALADO M.D. [place] NUMBER [id number] [facility] [place]. [id number] Notes Date/Time Note Provider Source 2023-11-25 13:36:00 B6xNOH3o2l2WWL4hXh5nw/WrtOyEHXf0DI4 7i/yfCsiDY3+A2IZ3+Yz2LhBzaHTl0814-3 11-24T13:36:00 Regarding: Pt is experiencing chest pains x 1 day off and on----- Message from Eduard Becker sent at 11/25/2023 1:36 PM CDT -----Pt is experiencing chest pains x 1 day off and on----- Message from Eduard Becker sent at 11/25/2023 1:36 PM CDT -----Pt is experiencing chest pains x 1 day off and on 40590-4Upmwesgzt encounter IgzaAO2417-94-25C04:37:10Telephone encounter NoteTXT1.2.840.691499.1.13.104.2.7. 2.121730|[id number] for patient njny46316-5VbxaZUMLAXXBIGDHkvhppzve C-CDA narrative [id number] D Koster RN[address] Ws[id number] 8JJBFVZRBJRUMJJTMOVQYRS9159-10-73Q0 3:37:101.2.840.191778.1.72.3.15|1.2 .840.159412.1.13.104.2.7.2.727879_2 [id number] Cristina Mccurdy RN [facility] - Health 2023-11-25 13:36:00 iF3ySmmo+qzJQQyO/gLu9SFQx7qNbUCwixV 7qQwrVn8ks5R9pbhsyEq2kZ/264xV0508-1 3:36:00 Adult Triage AssessmentLast Clinic Visit: 11/23/23 Family Medicine for anxietyPrimary Symptom: Chest painOnset / Duration: earlier today ~1000Location / Description: right sidedPain / Severity: 7/10 intermittent, tinglingAssociated Symptoms: better with activity, denies difficulty breathing, sweatingFever / Method: deferred for 911 symptomsHydration: deferred for 911 symptomsTreatment so far: deferred for 911 symptomsEffect on ADL's: deferred for 911 symptomsLMP: n/aPre-existing condition / Immunocompromised: per chart:Right ankle painAttention deficit hyperactivity disorder (ADHD), unspecified ADHD typeMale pattern baldnessAnxiety and depressionMood disorderDorothy Combs is a 33 year old male who calls with complaints of intermittent chest pain since 1000 today. Chest pain lasts less than 5 minutes but endorses current sweating. Pt was on his way to [facility] PCP's office, but encouraged to seek ED at this time, if he can safely make it to ED. Advised our protocol would want him to call 911 now. Pt verbalized understanding, denies other questions at this time. Call back warnings given.Cristina Mccurdy [facility] CenterNurse TriageReason for DispositionVisible sweat on face or sweat dripping down faceProtocols used: Chest Tbwy-UDPOY-KUVvojoltbpymeya signed by Cristina Mccurdy, RN at 11/25/2023 1:50 PM HRO18963-5Qdlvdjrfv encounter KslqIS2740-66-69X19:50:24Telephone encounter NoteTXT1.2.840.605634.1.13.104.2.7. 2.076375|[id number] for patient kyrv80730-0HlwcWAOYLHXDCXSDuyvrvvcx C-CDA narrative text37 Soto StreetDi[id number] 6NUHOSLSDSGPDNWEIAANQCB0575-37-98V8 3:50:241.2.840.155875.1.72.3.15|1.2 .840.681079.1.13.104.2.7.2.727879_2 [id number] [facility] 2023-11-24 08:03:13 nhwdfbTr1LrYl54bu2aHanQ0ew8lqY/Z7yB nciA+1ZYXdaZ08HjzJL+tzHDdyIDU1225-5 08:03:13 Mr. Combs,Your referral to Psych was placed in September. It is authorized. Please reach out to the [facility] Referral Department for scheduling assistance at [phone].Regards,Isa MichelAntonio V[id number] [place], [place] [address]Fmqqp: Fax: [phone]/07/2023, 8:02 AM 06136-3Nokdraixq encounter ApdjKU2447-54-63A73:03:19Telephone encounter NoteTXT1.2.840.933553.1.13.104.2.7. 2.959521|[id number] for patient eolb30269-3DbvxBLLIGIFSEGHMwwwmyvvs C-CDA narrative [id number] M Fisher PINKY[id number] 7BZFOWRDBQAKDJSOSCPJIBX7862-38-98X2 8:03:191.2.840.525066.1.72.3.15|1.2 .840.029441.1.13.104.2.7.2.727879_2 [id number] Isa Michel CHARGE ACCOUNTS AUDIT CLERK [facility] 2023-11-23 16:26:20 TR/iLc/G69Kacc6hs2M877NHjM6t5tJRA3v T4bs4ofT1CQzDFk+GKaNx40rU0C0E6585-3 11-22T16:26:20 Copied from [facility] #[id number]. Topic: Referral Status>> Nov 23, 2023 4:23 PM Patient Neck Cutter wrote:Pt called and states that Dr. Titus was going to put in a referral for psychiatry. He is wanting to go somewhere local if possible. Please advise. 50613-7Bvvkovafm encounter EjoqFF9591-34-26W50:26:26Telephone encounter NoteTXT1.2.840.237308.1.13.104.2.7. 2.992467|[id number] for patient pees08036-7EbpsSZYYIMISWHGHbsifkmxk C-CDA narrative gggj24627415Qtbvlch R [address] Zldw[id number] 5SDGFNEKUSNLUQCOTMFHUIE9521-50-77S7 6:26:261.2.840.494898.1.72.3.15|1.2 .840.508814.1.13.104.2.7.2.727879_2 [id number] Rossy Jiang [facility] 2023-11-22 08:00:24 22NVp3BHwmmIfZIyKht9W6B8DXCXH6/eXRY Tj1Wm6zGoxIWN4xieGIhc5hb6v56L3004-6 08:00:24 Patient canceled appt on 11/17/23 19573-3Eoqotzedh encounter PqpnZU5950-51-63M89:00:58Telephone encounter NoteTXT1.2.840.488054.1.13.104.2.7. 2.354892|[id number] for patient oawr01058-8HdnrTXCTJESSGNHXymyldbmk C-CDA narrative [id number] Mireles[id number] 6SLCFWOWJDCHNAIPNEWMEVT0663-54-43C5 8:00:581.2.840.828520.1.72.3.15|1.2 .840.197487.1.13.104.2.7.2.727879_2 [id number] Anabel Ortega [facility] 2023-11-22 07:07:51 WfNdLW4+SL1+EOxl+os1ufMyRdH0cTFBrDu ipVMgk5pDLQ9ZA8LlTpRSIfou1XQg6420-4 07:07:51 Please review and close. 36984-9Cmdzerrba encounter HkwoNB4425-68-78M11:08:12Telephone encounter NoteTXT1.2.840.907791.1.13.104.2.7. 2.770048|[id number] for patient sxzw00443-8HrgiENRKZFHNLJSGfvatodpn C-CDA narrative [id number] Jrab[id number] 8KNCLAZGWSHSSGNTYXOEOGV1155-44-78C2 7:08:121.2.840.120825.1.72.3.15|1.2 .840.996542.1.13.104.2.7.2.727879_2 [id number] Rosaura Ferrer [facility] 2023-11-16 11:00:47 xT+duF3MoXv2mOfOdtpKxwM7QePDC5IGngN iE3ai3c6TKJckaNMfPlPgEWJBDAo99638-6 1:00:47 [place] [address]-5Zfjoxnany encounter EnupOJ3505-52-83O37:00:53Telephone encounter NoteTXT1.2.840.698253.1.13.104.2.7. 2.385748|[id number] for patient dkjx59098-5DiweHJAPSREKMPXYhweleqnt C-CDA narrative text-FAMILY MEDICINE STAFF-FAMILY MEDICINE STAFF[address] Px[id number] 0SIBZTWANNUUREUCJVOFEFG1028-39-04U1 1:00:531.2.840.140301.1.72.3.15|1.2 .840.092437.1.13.104.2.7.2.727879_2 [id number] -FAMILY MEDICINE STAFF [facility] 2023-11-15 09:14:29 OtSvWk6XPy8LJCLDHOSAynVohqTD5kRsibR ErD4Ysyi8Fjxd70XNkHimNWSjirfF1271-8 09:14:29 Please review and advise 10365-4Ujenazegf encounter JwjgPL5796-64-87J26:14:36Telephone encounter NoteTXT1.2.840.242176.1.13.104.2.7. 2.909407|[id number] for patient ccyq77410-7JvdpFTGLYRIKZVMBosztvdwg C-CDA narrative jwrf374032493Wcmmvep M Fisher [id number] 6IOFMLTSNGDVKVZFUJZCWKL7622-61-98F8 9:14:361.2.840.295268.1.72.3.15|1.2 .840.405073.1.13.104.2.7.2.727879_2 [id number] Isa Michel [facility] 2023-11-15 09:00:33 cGq470djsuqdHLxIBjzdYQwGA6bG/vDEo1t wTPeI5r/lTFsOxR5dLOPTuiHEkBXL2116-6 09:00:33 I did notify pt of financial policy, but pt is having a lot of leg pain and is asking if he can still be seen.Is this pt okay'd to be seen or is it safe to reschedule.Thank you 52491-7Btflnvxkf encounter QvqqCO3504-65-62D05:01:51Telephone encounter NoteTXT1.2.840.712307.1.13.104.2.7. 2.865372|[id number] for patient nuji63231-5KrsbDPSZUZDMGSUSiogvdvtk C-CDA narrative [id number] L Ze[id number] 8WGIUNLASDQXJVPDNKJYFOL9332-21-14V3 9:01:511.2.840.872885.1.72.3.15|1.2 .840.800334.1.13.104.2.7.2.727879_2 [id number] Mirella Car [facility] 2023-11-15 08:21:06 0R5RotW1xRE0h+A/oscVJgUlN60nV+RftWd L0mN5PGAwunUBQr5VZXsqgKNPZzbg1715-3 08:21:06 Copied from [facility] #[id number]. Topic: Clinical - Medical Advice>> Nov 15, 2023 8:19 AM Patient Neck Cutter wrote:Dorothy Combs is a 33 year old male that is scheduled for an appt on 11/17/23. The pt is asking if he can pay his copay next week.Please advise. 06524-8Lvtkibxkt encounter AldxBQ8679-43-04A02:21:43Telephone encounter NoteTXT1.2.840.505228.1.13.104.2.7. 2.820998|[id number] for patient qgug17242-5NbgoLQXVRTFAEAKYqstrpdem C-CDA narrative text[address] Zyxs[id number] 1NRSFEUWYTLRAEQQSNZNCTL8695-99-98W8 8:21:431.2.840.078078.1.72.3.15|1.2 .840.646128.1.13.104.2.7.2.727879_2 [id number] [facility] 2023-10-15 15:45:00 MyM1QQMaqMa3lOafdooTSWcAlWnOvVlGIzg sNmG7IsBYd7+J6WV84hu8xwG31RM58631-7 10-14T15:45:00 Images from the original note were not included.Venipuncture collection performed by clean technique on the left anticubitus. Total of 1 attempts were made. Slight pressure and a bandage/dressing were applied to the site(s). The patient experienced no complications. The following specimens were processed according to instructions and sent to [facility] laboratories per lab order on 10/15/2023:LT BLUESST 4REDLAV 2PPTDK GREEN (LiHep)DK GREEN (SodH)GRAYDK BLUE (K2) 1DK BLUE (S)ACDBlood CultureNIPT/NTD 07318-3Tzmdv HmpsZU8849-66-48G35:53:12Nurse NoteTXT1.2.840.418987.1.13.104.2.7. 2.135978|[id number] for patient azoo74620-1Nftjy NoteLNNARRATIVEFormatted C-CDA narrative text[address] Zt[id number] 5SIEEBXFDSYRSMNZNZRNCWV6540-23-89X0 5:53:121.2.840.759540.1.72.3.15|1.2 .840.768699.1.13.104.2.7.2.727879_2 [id number] [facility]"
[2023-11-28] MEDS ORDERED: NA CHLORIDE 0.9% 1,000 ML ONE (21:37)
[2023-11-28 22:02] LABS: Absolute Basophils 0.1 K/uL (0-0.5); Absolute Eosinophils 0.1 K/uL (0-0.5); Absolute Lymphocytes (CBC) 3.1 K/uL (0.7-4.9); Absolute Monocytes 1.2 K/uL (0.1-1.3); Absolute Neutrophil 9.9 K/uL (1.8-8.0); Basophils % 0.7 % (0-1.3); Eosinophils % 0.7 % (0-4.4); Hematocrit 45.5 % (39.6-49.0); Hemoglobin 15.5 g/dL (13.6-17.9); Lymphocytes % 21.3 % (15.3-44.8); MCHC 34.1 g/dL (32.0-36.0); MPV 7.5 fL (7.6-11.3); Monocytes % 8.4 % (3.3-12.3); Neutrophils % 68.9 % (41.7-73.7); Platelets 400 thou/uL (152-406); RBC Red Blood Cell Count 5.17 M/uL (4.33-5.43); Red Cell Distribution Width 13.1 % (12.1-15.2)
[2023-11-28 22:09] LABS: Anion Gap 8.4 mEq/L (5.0-15.0); Potassium 3.4 mEq/L (3.5-5.1); Troponin High Sensitivity 6.7 pg/mL (<58.9)
--- NOTE | 2023-11-28 22:26 | RAD REPORT ---
EXAM DESCRIPTION: Sam Single View11/28/2023 10:08 pm CLINICAL HISTORY: Chest pain COMPARISON: none FINDINGS: The lungs appear clear of acute infiltrate. The heart is probably borderline enlarged IMPRESSION: No acute abnormalities displayed
--- NOTE | 2023-11-28 23:14 | ER ---
Nurse's Notes [facility] Name: Wyatt Gleason Age: 33 yrs Sex: Male : 1990 Arrival Date: 11/28/2023 Time: 21:16 Bed 6 Private MD: Diagnosis: Palpitations Presentation: 11/27 21:26 Chief complaint: Patient states: ate a THC gummy and my heart is racing. Coronavirus lg3 screen: Client denies travel out of the [place] in the last 14 days. At this time, the client does not indicate any symptoms associated with coronavirus-19. Ebola Screen: No symptoms or risks identified at this time. Initial Sepsis Screen: Does the patient meet any 2 criteria? No. Patient's initial sepsis screen is negative. Does the patient have a suspected source of infection? No. Patient's initial sepsis screen is negative. Risk Assessment: Do you want to hurt yourself or someone else? Patient reports no desire to harm self or others. Onset of symptoms was November 28, 2023. 21:26 Method Of Arrival: EMS: [facility] lg3 21:26 Acuity: ERNESTO 3 lg3 Triage Assessment: 21:27 General: Appears in no apparent distress. Behavior is cooperative, anxious. Pain: lg3 Denies pain. EENT: No deficits noted. No signs and/or symptoms were reported regarding the EENT system. Neuro: No deficits noted. Amado Agitation-Sedation Scale (RASS): 0 - Alert and Calm Level of Consciousness is awake, alert, obeys commands, Oriented to person, place, time, situation. Cardiovascular: No deficits noted. Reports palpitations, Denies chest pain, Heart tones S1 S2 present Capillary refill < 3 seconds Clubbing of nail beds is absent JVD is absent Patient's skin is warm and dry. Rhythm is sinus rhythm. Respiratory: No deficits noted. Airway is patent Respiratory effort is even, unlabored, Respiratory pattern is regular, symmetrical, Breath sounds are clear bilaterally. GI: No deficits noted. No signs and/or symptoms were reported involving the gastrointestinal system. Abdomen is round non-distended, obese. : No deficits noted. No signs and/or symptoms were reported regarding the genitourinary system. Derm: No deficits noted. No signs and/or symptoms reported regarding the dermatologic system. Skin is intact, is healthy with good turgor, Skin is dry, Skin is normal, Skin temperature is warm. Musculoskeletal: No deficits noted. No signs and/or symptoms reported regarding the musculoskeletal system. Circulation, motion, and sensation intact. Range of motion: intact in all extremities. Historical: - Allergies: 21:27 No Known Allergies; lg3 - Home Meds: 21:27 None [Active]; lg3 - PMHx: 21:27 None; lg3 - PSHx: 21:27 None; lg3 - Immunization history:: Adult Immunizations up to date, Client reports receiving the 2nd dose of the Covid vaccine, Flu vaccine is up to date. - Infectious Disease History:: Denies. - Social history:: Smoking status: Patient reports the use of cigarette tobacco products, smokes one-half pack cigarettes per day, Patient uses street drugs, THC, Patient/guardian denies using alcohol. - Family history:: not pertinent. - Hospitalizations: : No recent hospitalization is reported. Screenin:30 [facility] ED Fall Risk Assessment (Adult) History of falling in the last 3 months, lg3 including since admission No falls in past 3 months (0 pts) Confusion or Disorientation No (0 pts) Intoxicated or Sedated No (0 pts) Impaired Gait No (0 pts) Mobility Assist Device Used No (0 pt) Altered Elimination No (0 pt) Score/Fall Risk Level 0 - 2 = Low Risk Oriented to surroundings, Maintained a safe environment, Educated pt \T\ family on fall prevention, incl call for assistance when getting out of bed, Assessed \T\ reinforced patient's understanding of fall precautions. Abuse screen: Denies threats or abuse. Denies injuries from another. Nutritional screening: No deficits noted. Tuberculosis screening: No symptoms or risk factors identified. Assessment: 21:30 General: see triage assessment. lg3 22:35 Reassessment: Patient appears in no apparent distress at this time. No changes from lg3 previously documented assessment. Patient and/or family updated on plan of care and expected duration. Pain level reassessed. Patient is alert, oriented x 3, equal unlabored respirations, skin warm/dry/pink. 23:36 Reassessment: Patient appears in no apparent distress at this time. Patient and/or lg3 family updated on plan of care and expected duration. Pain level reassessed. Patient is alert, oriented x 3, equal unlabored respirations, skin warm/dry/pink. Patient states feeling better. Patient states symptoms have improved. Vital Signs: 21:26 BP 144 / 91; Pulse 96; Resp 18; Temp 98.2(O); Pulse Ox 98% on R/A; Weight 99.79 kg (R); lg3 Height 5 ft. 9 in. (R); Pain 0/10; 22:36 BP 128 / 78; Pulse 71; Resp 17 S; Pulse Ox 98% on R/A; lg3 23:36 BP 127 / 74; Pulse 73; Resp 18 S; Temp 98.4(O); Pulse Ox 99% on R/A; lg3 21:26 Body Mass Index 32.49 (99.79 kg, 175.26 cm) lg3 21:26 Pain Scale: Adult lg3 ED Course: 21:19 Patient arrived in ED. rn 21:20 Nomi Anderson MD is Attending Physician. rn 21:24 Anai Jiménez RN is Primary Nurse. lg3 21:27 Triage completed. lg3 21:27 Arm band placed on right wrist. lg3 21:30 Patient has correct armband on for positive identification. Placed in gown. Bed in low lg3 position. Call light in reach. Side rails up X 1. Client placed on continuous cardiac and pulse oximetry monitoring. NIBP monitoring applied. media monitor on. Door closed. Noise minimized. Warm blanket given. 21:30 Maintain EMS IV. Dressing intact. Good blood return noted. Site clean \T\ dry. Gauge \T\ lg 3 site: 22RAC. 22:10 XRAY Chest (1 view) In Process Unspecified. EDMS 23:36 No provider procedures requiring assistance completed. IV discontinued, intact, lg3 bleeding controlled, No redness/swelling at site. Pressure dressing applied. Administered Medications: 21:44 Drug: NS 0.9% IV 1000 ml IV at 1000 ml once Route: IV; Rate: 1000 ml; Site: right lg3 antecubital; 23:38 Follow up: IV Status: Completed infusion; IV Intake: 1000ml lg3 Medication: 23:36 VIS not applicable for this client. lg3 Intake: 23:38 IV: 1000ml; Total: 1000ml. lg3 Outcome: 23:14 Discharge ordered by . rn 23:36 Discharged to home ambulatory, with family, lg3 23:36 Condition: stable 23:36 Discharge instructions given to patient, Instructed on discharge instructions, follow up and referral plans. Demonstrated understanding of instructions, follow-up care, 23:38 Patient left the ED. lg3 Signatures: Dispatcher [employer] Nomi Najera MD MD rn Able, Lacie, RN RN lg3
--- NOTE | 2023-11-28 23:14 | EDPHYS ---
Physician Documentation [facility] Name: Wyatt Gleason Age: 33 yrs Sex: Male : 1990 Arrival Date: 11/28/2023 Time: 21:16 Bed 6 Private MD: ED Physician Nomi Anderson HPI: 11/27 21:40 This 33 yrs old Male presents to ER via EMS with complaints of heart racing, chest pain.rn 21:40 The patient presents with a history of heart racing. Onset: The symptoms/episode rn began/occurred just prior to arrival. Duration: The patient or guardian reports a single episode, that is now resolved. Modifying factors: The symptoms are aggravated by nothing. The symptoms are alleviated by nothing. Severity of symptoms: At their worst the symptoms were moderate in the emergency department the symptoms have improved. The patient has not experienced similar symptoms in the past. The patient has not recently seen a physician. Patient called EMS for palpitations and heart racing. Patient states a delta 8 gummy and a few hours later began to feel heart racing and chest pain. EMS states heart rate was in the 130s, never hypotensive. Patient denies history of SVT or cardiac arrhythmia. No other known medical problems. Patient states feels much better now.. Historical: - Allergies: 21:27 No Known Allergies; lg3 - Home Meds: 21:27 None [Active]; lg3 - PMHx: 21:27 None; lg3 - PSHx: 21:27 None; lg3 - Immunization history:: Adult Immunizations up to date, Client reports receiving the 2nd dose of the Covid vaccine, Flu vaccine is up to date. - Infectious Disease History:: Denies. - Social history:: Smoking status: Patient reports the use of cigarette tobacco products, smokes one-half pack cigarettes per day, Patient uses street drugs, THC, Patient/guardian denies using alcohol. - Family history:: not pertinent. - Hospitalizations: : No recent hospitalization is reported. ROS: 21:40 Constitutional: Negative for fever, chills, and weight loss, Cardiovascular: Positive rn for palpitations Respiratory: Negative for shortness of breath, cough, wheezing, and pleuritic chest pain, Abdomen/GI: Negative for abdominal pain, nausea, vomiting, diarrhea, and constipation, MS/Extremity: Negative for injury and deformity, Skin: Negative for injury, rash, and discoloration, Neuro: Negative for headache, weakness, numbness, tingling, and seizure, Exam: 21:40 Constitutional: This is a well developed, well nourished patient who is awake, alert, rn and in no acute distress. Head/Face: Normocephalic, atraumatic. Eyes: Pupils equal round and reactive to light, extra-ocular motions intact. Cardiovascular: Regular rate and rhythm. No pulse deficits. Respiratory: No increased work of breathing, no retractions or nasal flaring. Abdomen/GI: Soft, non-tender MS/ Extremity: Pulses equal, no cyanosis. Neurovascular intact. Full, normal range of motion. Equal circumference. Neuro: Awake and alert, GCS 15, oriented to person, place, time, and situation. Cranial nerves II-XII grossly intact. Motor strength 5/5 in all extremities. Sensory grossly intact. Cerebellar exam normal. Normal gait. 21:58 ECG was reviewed by the Attending Physician. rn Vital Signs: 21:26 BP 144 / 91; Pulse 96; Resp 18; Temp 98.2(O); Pulse Ox 98% on R/A; Weight 99.79 kg (R); lg3 Height 5 ft. 9 in. (R); Pain 0/10; 22:36 BP 128 / 78; Pulse 71; Resp 17 S; Pulse Ox 98% on R/A; lg3 23:36 BP 127 / 74; Pulse 73; Resp 18 S; Temp 98.4(O); Pulse Ox 99% on R/A; lg3 21:26 Body Mass Index 32.49 (99.79 kg, 175.26 cm) lg3 21:26 Pain Scale: Adult lg3 MDM: 21:20 Patient medically screened. rn 23:13 Differential diagnosis: arrythmia, dehydration, stress disorder. Data reviewed: vital rn signs, nurses notes, lab test result(s), EKG, radiologic studies, plain films, and as a result, I will discharge patient. Counseling: I had a detailed discussion with the patient and/or guardian regarding the historical points, exam findings, and any diagnostic results supporting the discharge/admit diagnosis, lab results, radiology results, the need for outpatient follow up, to return to the emergency department if symptoms worsen or persist or if there are any questions or concerns that arise at home. Special discussion: I discussed with the patient/guardian in detail that at this point there is no indication for admission to the hospital. It is understood, however, that if the symptoms persist or worsen the patient needs to return immediately for re-evaluation. ED course: Patient feels much better, back to baseline. No acute findings and workup.. D-dimer negative and troponin negative. Family here and reports that he has been taking several new medications including trazodone and Abilify which she did not like the way it made him feel so he stopped recently. Also trying natural medication and that is how he got the delta 8 Gummies today. Recommend cessation of [id number] medication at this time and follow-up with psychiatry for further recommendations of medication. Family also states recent visit to [place] emergency room for same complaint and was told everything looked okay. Has follow-up with cardiology soon. I have personally reviewed all of the results, including but not limited to blood tests and imaging deemed necessary to safely discharge this patient at this time. All results given to and printed out for patient. I personally went over all the results with the patient and answered all questions. Patient will follow-up with PCP and or specialist as discussed. Return precautions given and understood.. 11/27 21:20 Order name: Basic Metabolic Panel; Complete Time: 22: rn 11/27 21:20 Order name: CBC with Diff; Complete Time: : rn 11/27 21:20 Order name: D-Dimer; Complete Time: 23:01 rn 11/27 21:20 Order name: NT PRO-BNP; Complete Time: 22: rn 11/27 21:20 Order name: Troponin HS; Complete Time: 22: rn 11/27 21:20 Order name: Urine Drug Screen; Complete Time: 23:35 rn 11/27 21:20 Order name: XRAY Chest (1 view); Complete Time: 22:49 rn 11/27 21:20 Order name: EKG; Complete Time: 21: rn 11/27 21:20 Order name: Cardiac monitoring; Complete Time: :44 rn 11/27 21:20 Order name: EKG - Nurse/Tech; Complete Time: :44 rn 11/27 21:20 Order name: IV Saline Lock; Complete Time: :44 rn 11/27 21:20 Order name: Labs collected and sent; Complete Time: :44 rn 11/27 21:20 Order name: O2 Per Protocol; Complete Time: :44 rn 11/27 21:20 Order name: O2 Sat Monitoring; Complete Time: :44 rn EC:58 Rate is 92 beats/min. Rhythm is regular. QRS is positive in lead aVF and negative in rn lead I. IA interval is normal. QRS interval is normal. QT interval is normal. No Q waves. T waves are Normal. No ST changes noted. Clinical impression: NSR w/ Non-specific ST/T Changes. Reviewed by me. Administered Medications: :44 Drug: NS 0.9% IV 1000 ml IV at 1000 ml once Route: IV; Rate: 1000 ml; Site: right lg3 antecubital; 23:38 Follow up: IV Status: Completed infusion; IV Intake: 1000ml lg3 Disposition Summary: 11/28/23 23:14 Discharge Ordered Notes: Location: Home rn Problem: new rn Symptoms: have improved rn Condition: Stable rn Diagnosis - Palpitations rn Followup: rn - With: Private Physician - When: As needed - Reason: Recheck today's complaints, Re-evaluation by your physician Discharge Instructions: - Discharge Summary Sheet rn - Palpitations rn Forms: - Medication Reconciliation Form rn - 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 [facility] 21:21 21:21 CBC+H.LAB.BRZ ordered. [facility] 21:21 21:21 D-DIMER+COAG.LAB.BRZ ordered. [facility] 21:21 21:21 PROBNP+C.LAB.BRZ ordered. [facility] 21:21 21:21 Troponin High Sensitivity+C.LAB.BRZ ordered. [facility] 21:21 21:21 URINE DRUG SCREEN+UC.LAB.BRZ ordered. [facility] 23:14 23:13 ED course: Patient feels much better, back to baseline. No acute findings and rn workup.. D-dimer negative and troponin negative. Family here and reports that he has been taking several new medications including trazodone and Abilify which she did not like the way it made him feel so he stopped recently. Also trying natural medication and that is how he got the delta 8 Gummies today. Recommend cessation of [id number] medication at this time and follow-up with psychiatry for further recommendations of medication. Family also states recent visit to [place] emergency room for same complaint and was told everything looked okay. Has follow-up with cardiology soon.. rn
[2023-11-28 23:35] LABS: Barbiturates NEGATIVE (NEGATIVE); Benzodiazepines NEGATIVE (NEGATIVE); Cocaine NEGATIVE (NEGATIVE); METHAMPHETAM NEGATIVE (NEGATIVE); Methadone NEGATIVE (NEGATIVE); Opiates NEGATIVE (NEGATIVE); Phencyclidine NEGATIVE (NEGATIVE); THC Cannibis POSITIVE (NEGATIVE)
[2023-11-28 23:49] VITALS: BP 127/74; TEMP 98.4; O2SAT 99
--- NOTE | 2023-11-29 14:38 | EKG ---
Test Date: 2023-11-28 Test Time: 21:56:30 Marketing Teacher: RYLEY MEASUREMENT RESULTS: Intervals: Rate: 92 MO: 138 QRSD: 82 QT: 346 QTc: 427 [place]: P: MO: 138 QRS: 110 T: 112 INTERPRETIVE STATEMENTS: Normal sinus rhythm Left posterior fascicular block Abnormal ECG No previous ECG available for comparison Electronically Signed On 11-29-23 14:37:08 CDT by Feliberto Baltazar
== END 2023-11-28 23:38 | disposition home or self-care (01) ==
LOC: ER 21:16
DX: R00.2 Palpitations (principal); R07.9 Chest pain, unspecified
CPT/HCPCS: 96361; 93005; 85025; 80048; 36415; 85379; 84484; 83880; 80307; 71045; 96360; 99285; J7030

== ENCOUNTER 2024-11-28 22:36 | Emergency (ER) | payer BC ==
--- OUTSIDE RECORDS SUMMARY | 2024-11-28 22:41 | XMS REPORT | Continuity of Care Document ---
Author Name Unknown Address [address] [facility] [place] [address] [facility] [place] Address [address] [facility] [place] [address] Care Team Providers Care Primary Health Organisation Manager Name Role Phone Miranda Goetz MD Primary Care Physician + [phone] Miranda Goetz MD Attending Clinician [phone] MIRANDA GOETZ Attending Clinician Unavailable MIRANDA GOETZ Attending Clinician Unavailable LO FORD Attending Clinician Unavailable LO FORD Attending Clinician Unavailable Gisela Vivar LVN Attending Clinician Unavailtushar Donovan RN, Faith Rg Attending Clinician Unavaila ble Lab, Ang - Db Attending Clinician Unavailable Lo Ford MD Attending Clinician [phone] MATT CASTLE Attending Clinician Unavailable Mtat Castle MD Attending Clinician [phone] ROBERTO TREVIÑO Attending Clinician Unavailable CONNIE TITUS Attending Clinician Yessenia Connie Balderrama MD Attending Clinician Matt Castle MD Attending Clinician [phone] Doctor Unassigned, [place] Attending Clinician U BONITA Pisano Attending Clinician Unavailable Connie Titus MD Attending Clinician SHAHZAD ALLEN Attending Clinician Unavailable Roberto Scherer Attending Clinician [phone] ARVIN WYNNE Attending Clinician Unavailable Arvin Wynne MD Attending Clinician [phone] MIKI ZARATE Attending Clinician Unavailable Cristina Mccurdy RN Attending Clinician Unavaila ble Lab, Ang - Db Attending Clinician Unavailable NANCI ESCAMILLA Admitting Clinician ARVIN Martin Admitting Clinician Unavailable MATT CASTLE Admitting Clinician Unavailable Payers Payer Name Policy Type Policy Number Effective Date Expirati on Date Source Problems Condition Name Condition Details Condition Category Status Onset Date Resolution Date Last Treatment Date Treating Clinician Comments Source Essential hypertensi on Essential hypertensi on Disease Active 2023-07 00:00: 00 [facility] Palpitatio ns Palpitatio ns Disease Active 605 00:00: 00 [facility] Chest pain, unspecifie d type Chest pain, unspecifie d type Disease Active 11-25 00:00: 00 [facility] Cigarette smoker Cigarette smoker Disease Active 11-25 00:00: 00 [facility] Elevated blood pressure reading Elevated blood pressure reading Disease Active - 00:00: 00 [facility] Obesity (BMI 30-39.9) Obesity (BMI 30-39.9) Disease Active 11-25 00:00: 00 [facility] Attention deficit hyperactiv ity disorder (ADHD), unspecifie d ADHD type Attention deficit hyperactiv ity disorder (ADHD), unspecifie d ADHD type Disease Active 10-14 00:00: 00 [facility] 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 Disease Active 10-14 00:00: 00 [facility] Anxiety and depression Anxiety and depression Disease Active 10-14 00:00: 00 [facility] Mood disorder Mood disorder Disease Active 10-14 00:00: 00 [facility] Right ankle pain Right ankle pain Disease Active 2014-07 00:00: 00 [facility] Allergies, Adverse Reactions, Alerts Allergy Name Allergy Type Status Severity Reaction(s) Onset Date Inactive Date Treating Clinician Comments Source NO KNOWN ALLERGIE S Drug Class Active [facility] Family History Family Member Diagnosis Comments Start Date Stop Date Sourc e Natural mother Stroke Unive [facility] Social History Social Habit Start Date Stop Date Quantity Comments Source History of tobacco use Smokes tobacco daily [facility] Alcoholic beverage intake 2024-08-02 00:00:00 2024-08-02 00:00:00 0 /d [facility] History of Social function 2024-08-02 00:00:00 2024-08-02 00:00:00 [facility] Alcohol intake 2023-11-26 00:00:00 2023-11-26 00:00:00 0 /d [facility] Sex assigned at 1990 00:00:00 1990 00:00:00 [facility] Smoking Status Start Date Stop Date Source Smokes tobacco daily 2015-05-02 00:00:00 [facility] Medications Ordered Medication Name Filled Medication Name Start Date Stop Date Current Medication? Ordering Clinician Indication Dosage Frequency Signature (SIG) Comments Components Source amLODIPine 5 mg tablet 11-15 00:00: 00 Yes [id number] 5mg Take 1 tablet by mouth in the morning. [facility] amLODIPine 5 mg tablet 3-24 00:00: 00 11-15 00:00 :00 No [id number] 5mg Take 1 tablet by mouth in the morning. [facility] amLODIPine 5 mg tablet 2-21 00:00: 00 10-14 00:00 :00 No [id number] 5mg Take 1 tablet by mouth in the morning. [facility] Zinc Acetate, Oral, 50 mg (zinc) Cap 08-02 00:00: 00 Yes [id number] 50mg Take 50 mg by mouth in the morning. [facility] amLODIPine 5 mg tablet 08-02 00:00: 00 09-02 05:59 :00 No [id number] 5mg Take 1 tablet by mouth in the morning for 30 days. [facility] nicotine 14 mg/24 hr patch 08-02 00:00: 00 08-22 05:59 :00 No [id number] 1{patch } Apply 1 Patch to area(s) Infusion over 72 hours for 7 doses. [facility] amLODIPine 2.5 mg tablet - 00:00: 00 08-02 00:00 :00 No [id number] 2.5mg Take 1 tablet by mouth in the morning. [facility] amLODIPine 2.5 mg tablet 2023-07 00:00: 00 07-28 00:00 :00 No [id number] 2.5mg Take 1 tablet by mouth in the morning. [facility] amLODIPine 2.5 mg tablet 2023-07 00:00: 00 07-18 00:00 :00 No [id number] 2.5mg Take 1 tablet by mouth in the morning. [facility] amLODIPine 2.5 mg tablet 2023-07 0- 00:00: 00 06-16 00:00 :00 No [id number] 2.5mg Take 1 tablet by mouth in the morning for 30 days. [facility] nicotine 21 mg/24 hr patch 2023-07 0-29 00:00: 00 05-27 04:59 :00 No [id number] 1{patch } Apply 1 Patch to area(s) every 24 (twenty-fo ur) hours for 3 days. [facility] busPIRone 7.5 mg tablet 03-31 13:36: 19 Yes 7.5mg Take 1 tablet by mouth in the morning and 1 tablet in the evening. [facility] iopamidol (ISOVUE 370-500 mL) injection 80 mL 02-15 15:45: 00 02-15 15:40 :00 No [id number] 80mL 80 mL, Intravenou s, ONCE, 1 dose, On Wed02/16/24 at 1045, Routine [facility] nitroglycer in (NITROSTAT) sublingual tablet 0.8 mg 02-15 15:01: 00 02-15 15:01 :00 No [id number] .8mg 0.8 mg, Sublingual , ONCE, 1 dose, On Wed02/16/24 at 1015, Routine [facility] metoprolol tartrate (LOPRESSOR) tablet 100 mg 02-15 14:20: 00 02-15 14:34 :00 No [id number] 100mg 100 mg, Oral, ONCE, 1 dose, On Wed02/16/24 at 0930, Routine [facility] famotidine 40 mg tablet 12-30 00:00: 00 Yes [id number] 40mg Take 1 tablet by mouth in the morning. As needed for indigestio n [facility] Zinc Acetate, Oral, 50 mg (zinc) Cap 12-30 00:00: 00 08-02 00:00 :00 No [id number] 50mg Take 50 mg by mouth in the morning. [facility] Cholecalcif em, Vitamin D3, 1,250 mcg (50,000 unit) capsule 12-30 00:00: 00 02-19 04:59 :00 No [id number] 94964Z Take 1 capsule by mouth weekly for 8 doses. [facility] IBUPROFEN ORAL 11-22 10:18: 46 11-22 00:00 :00 No Take by mouth. [facility] traZODone 50 mg tablet 11-22 00:00: 00 03-31 00:00 :00 No [id number] 50mg Take 1 tablet by mouth at bedtime. [facility] escitalopra m oxalate (LEXAPRO) 10 mg tablet 11-22 00:00: 00 12-30 00:00 :00 No [id number] 10mg Take 1 tablet by mouth in the morning. [facility] ARIPiprazol e 15 mg tablet 10-18 00:00: 00 11-22 00:00 :00 No [id number] 15mg Take 1 tablet by mouth in the morning. [facility] ACETAMINOPH EN WITH CODEINE (TYLENOL-CO DEINE #3 ORAL) 10-14 14:58: 58 Yes Take by mouth. [facility] ARIPiprazol e 15 mg tablet 10-14 00:00: 00 Yes [id number] 15mg Take 1 tablet by mouth in the morning. [facility] fluticasone propionate 50 mcg/actuati on nasal spray 09-26 00:00: 00 11-22 00:00 :00 No 2{spray } Use 2 Sprays in each nostril once daily as needed. [facility] IBUPROFEN ORAL 2014-07 10:52: 15 11-22 00:00 :00 No Take by mouth. [facility] Immunizations Ordered Immunization Name Filled Immunization Name Date Status Comments Source TDAP 2024-05-24 00:00:00 Completed [facility] Flu Injectable MDCK Pres-Free (FLUCELVAX) 2024-05-24 00:00:00 Completed Vital Signs Vital Name Observation Time Observation Value Comments S ource Systolic blood pressure 2024-08-02 16:00:00 130 mm[Hg] [facility] Diastolic blood pressure 2024-08-02 16:00:00 84 mm[Hg] [facility] Heart rate 2024-08-02 15:53:00 83 /min [facility] Body height 2024-08-02 15:53:00 175.3 cm [facility] Body weight 2024-08-02 15:53:00 98.657 kg [facility] BMI 2024-08-02 15:53:00 32.12 kg/m2 [facility] Oxygen saturation in Arterial blood by Pulse oximetry 2024-08-02 15:53:00 100 /min [facility] Systolic blood pressure 2024-05-23 20:58:00 122 mm[Hg] [facility] Diastolic blood pressure 2024-05-23 20:58:00 79 mm[Hg] [facility] Heart rate 2024-05-23 20:58:00 79 /min [facility] Body height 2024-05-23 20:58:00 175.3 cm [facility] Body weight 2024-05-23 20:58:00 96.616 kg [facility] BMI 2024-05-23 20:58:00 31.45 kg/m2 [facility] Oxygen saturation in Arterial blood by Pulse oximetry 2024-05-23 20:58:00 98 /min [facility] Systolic blood pressure 2024-03-31 18:31:00 137 mm[Hg] [facility] Diastolic blood pressure 2024-03-31 18:31:00 84 mm[Hg] [facility] Heart rate 2024-03-31 18:31:00 79 /min Unive [facility] Respiratory rate 2024-03-31 18:31:00 18 /min [facility] Body height 2024-03-31 18:31:00 175.3 cm [facility] Body weight 2024-03-31 18:31:00 95.845 kg Univ [facility] BMI 2024-03-31 18:31:00 31.20 kg/m2 Univ [facility] Oxygen saturation in Arterial blood by Pulse oximetry 2024-03-31 18:31:00 98 /min [facility] Systolic blood pressure 2023-12-31 20:05:00 114 mm[Hg] [facility] Diastolic blood pressure 2023-12-31 20:05:00 76 mm[Hg] [facility] Heart rate 2023-12-31 20:05:00 83 /min [facility] Respiratory rate 2023-12-31 20:05:00 18 /min [facility] Body height 2023-12-31 20:05:00 175.3 cm [facility] Body weight 2023-12-31 20:05:00 96.979 kg [facility] BMI 2023-12-31 20:05:00 31.57 kg/m2 [facility] Oxygen saturation in Arterial blood by Pulse oximetry 2023-12-31 20:05:00 97 /min [facility] Systolic blood pressure 2023-12-29 18:39:00 120 mm[Hg] [facility] Diastolic blood pressure 2023-12-29 18:39:00 71 mm[Hg] [facility] Heart rate 2023-12-29 18:39:00 79 /min Unive [facility] Body temperature 2023-12-29 18:39:00 36.17 Tish [facility] Respiratory rate 2023-12-29 18:39:00 18 /min [facility] Body height 2023-12-29 18:39:00 175.3 cm [facility] Body weight 2023-12-29 18:39:00 97.297 kg [facility] BMI 2023-12-29 18:39:00 31.68 kg/m2 [facility] Oxygen saturation in Arterial blood by Pulse oximetry 2023-12-29 18:39:00 99 /min [facility] Systolic blood pressure 2023-12-23 16:29:00 133 mm[Hg] [facility] Diastolic blood pressure 2023-12-23 16:29:00 88 mm[Hg] [facility] Heart rate 2023-12-23 16:29:00 85 /min [facility] Body temperature 2023-12-23 16:29:00 36.28 Tish [facility] Respiratory rate 2023-12-23 16:29:00 18 /min [facility] Body height 2023-12-23 16:29:00 175.3 cm [facility] Body weight 2023-12-23 16:29:00 99.791 kg [facility] BMI 2023-12-23 16:29:00 32.49 kg/m2 [facility] Oxygen saturation in Arterial blood by Pulse oximetry 2023-12-23 16:29:00 99 /min [facility] Systolic blood pressure 2023-11-26 15:33:00 138 mm[Hg] [facility] Diastolic blood pressure 2023-11-26 15:33:00 90 mm[Hg] [facility] Heart rate 2023-11-26 15:33:00 78 /min [facility] Oxygen saturation in Arterial blood by Pulse oximetry 2023-11-26 15:33:00 96 /min [facility] Respiratory rate 2023-11-26 15:30:00 18 /min [facility] Body height 2023-11-26 15:30:00 175.3 cm [facility] Body weight 2023-11-26 15:30:00 99.701 kg [facility] BMI 2023-11-26 15:30:00 32.46 kg/m2 [facility] Systolic blood pressure 2023-11-23 15:18:00 132 mm[Hg] [facility] Diastolic blood pressure 2023-11-23 15:18:00 91 mm[Hg] [facility] Heart rate 2023-11-23 15:00:00 85 /min [facility] Respiratory rate 2023-11-23 15:00:00 18 /min [facility] Body height 2023-11-23 15:00:00 175.3 cm [facility] Body weight 2023-11-23 15:00:00 100.608 kg Univ [facility] BMI 2023-11-23 15:00:00 32.75 kg/m2 [facility] Oxygen saturation in Arterial blood by Pulse oximetry 2023-11-23 15:00:00 97 /min [facility] Systolic blood pressure 2023-10-15 19:57:00 129 mm[Hg] [facility] Diastolic blood pressure 2023-10-15 19:57:00 79 mm[Hg] [facility] Heart rate 2023-10-15 19:57:00 73 /min [facility] Body height 2023-10-15 19:57:00 175.3 cm [facility] Body weight 2023-10-15 19:57:00 105.28 kg [facility] BMI 2023-10-15 19:57:00 34.28 kg/m2 [facility] Oxygen saturation in Arterial blood by Pulse oximetry 2023-10-15 19:57:00 98 /min [facility] Systolic blood pressure 2024-08-02 16:00:00 130 mm[Hg] [facility] Diastolic blood pressure 2024-08-02 16:00:00 84 mm[Hg] [facility] Heart rate 2024-08-02 15:53:00 83 [facility] 2024-08-02 15:53:00 175.3 cm [facility] Body weight 2024-08-02 15:53:00 98.657 kg [facility] BMI 2024-08-02 15:53:00 32.12 kg/m2 [facility] Oxygen saturation in Arterial blood by Pulse oximetry 2024-08-02 15:53:00 100 /min [facility] Respiratory rate 2024-03-31 18:31:00 18 /min [facility] Body temperature 2023-12-29 18:39:00 36.17 Tish [facility] Procedures Procedure Date / Time Performed Performing Clinician Source TDAP VACCINE, >11 YRS, IM 2024-05-24 15:17:41 Bishnu [facility] FLU VACC (), 6 MO-64 YRS, .5ML, IM, TIV (FLUCELVAX) 2024-05-24 15:17:41 Bishnu [facility] CT ANGIOGRAPHY CORONARIES WITHOUT CARDIAC CALCIUM SCORING 2024-02-16 16:00:00 [facility]W 2023-12-23 17:14:15 Arvin Wynne [facility] TRANSTHORACIC ECHO (TTE) COMPLETE 2023-12-22 15:00:43 [facility] HCV ANTIBODY 2023-10-15 20:53:00 Roberto Treviño [facility] HIV 1/2 AG-AB WITH REFLEX 2023-10-15 20:53:00 Roberto Treviño [facility] ASSIGNMENT OF BENEFITS 2023-10-15 19:48:39 Docto r Unassigned, [place] [facility] Encounters Start Date/Time End Date/Time Encounter Type Admission Type Attending [facility] Care Facility Care Department Encounter ID Source 2024-11-15 00:00:00 2024-11-15 14:24:32 [facility] 1.2.840.114 350.1.13.10 4.2.7.2.686 [id number] [facility] 2024-11-08 13:40:00 2024-11-08 13:40:00 Outpatient R GOETZ, MATTA GOETZ, [facility] [id number] [facility] 2024-11-01 15:00:00 2024-11-01 15:00:00 Outpatient R GOETZ, CIELOEHA GOETZ, [facility] [id number] [facility] 2024-10-14 00:00:00 2024-10-16 15:33:37 Refill Goetz, [facility] SOL[facility] 1.840.114 350.1.13.10 4.2.7.2.686 [id number] [facility] 2024-10-14 00:00:00 2024-10-16 15:33:08 Refill Goetz, [facility] SOL[facility] 1..840.114 350.1.13.10 4.2.7.2.686 [id number] [facility] 2024-09-14 00:00:00 2024-09-15 08:40:18 Telephone Goetz, [facility] SOL[facility] 1..840.114 350.1.13.10 4.2.7.2.686 [id number] [facility] 2023-11-17 00:00:00 2024-09-09 02:13:07 Orders Only Gisela Vivar, Gis[facility] 1.2.840.114 350.1.13.10 4.2.7.2.686 [id number] [facility] 2024-08-02 10:00:00 2024-08-02 10:23:29 Outpatient R BISHNU FAKEHA BISHNU FAKEHA [facility] [id number] [facility] 2024-08-02 10:00:00 2024-08-02 10:23:29 Office Visit Matt Goetza 1.2.840.1 [id number] 3.104.2.7 .3.714181 .[id number] [facility] 2024-08-02 00:00:00 2024-08-02 00:00:00 Travel 1.2.840.1 [id number] 3.104.2.7 .3.236876 .8 1.2.840.114 350.1.13.10 4.2.7.3.698 [id number] [facility] 2024-07-28 00:00:00 2024-07-28 14:39:53 Telephone Bishnu Fakeha 1.2.840.1 [id number] 3.104.2.7 .3.186892 .8 [id number] [facility] 2024-07-26 00:00:00 2024-07-27 13:25:21 Refill Goetz, Fakeha 1.2.840.1 [id number] 3.104.2.7 .3.069513 .8 [id number] [facility] 2024-07-25 00:00:00 2024-07-27 13:22:31 Refill Bishnu Fakeha 1.2.840.1 [id number] 3.104.2.7 .3.937186 .8 [id number] [facility] 2024-07-24 00:00:00 2024-07-27 12:04:58 Telephone Miranda Goetz 1.2.840.1 [id number] 3.104.2.7 .3.700778 .8 [id number] [facility] 2024-07-24 15:20:00 2024-07-24 15:20:00 Outpatient R GOETZ, FAKEHA GOETZ, FAKEHA [facility] [id number] [facility] 2024-07-18 00:00:00 2024-07-18 07:46:57 Nurse Triage Faith Donovan 1.2.840.1 23693.1.1 3.104.2.7 .3.473466 .8 [id number] [facility] 2024-07-05 11:00:00 2024-07-05 11:00:00 Outpatient R GOETZ, FAKEHA GOETZ, FAKEHA [facility] [id number] [facility] 2024-06-21 15:40:00 2024-06-21 15:40:00 Outpatient R GOETZ, FAKEHA GOETZ, FAKEHA [facility] [id number] [facility] 2024-06-19 00:00:00 2024-06-19 00:00:00 Travel 1.2.840.1 [id number] 3.104.2.7 .3.747894 .8 1.2.840.114 350.1.13.10 4.2.7.3.698 [id number] [facility] 2024-06-16 00:00:00 2024-06-16 14:34:25 Refill Bishnu Fakeha 1.2.840.1 [id number] 3.104.2.7 .3.269552 .8 [id number] [facility] 2024-05-24 00:00:00 2024-05-25 16:08:37 [facility] 1..840.114 350.1.13.10 4.2.7.2.686 [id number] [facility] 2024-05-24 11:45:00 2024-05-24 11:45:00 Silo Tender Visit Lab, Ang - Db [facility], Ang - Db [facility] SOL[facility] 1..840.114 350.1.13.10 4.2.7.2.686 [id number] [facility] 2024-05-24 11:45:00 2024-05-24 11:42:43 Outpatient R LO FORD LO [facility] [id number] [facility] 2024-05-23 15:40:00 2024-05-23 16:37:59 Outpatient R BISHNU MATTSudarshan [id number] [facility] 2024-05-23 15:40:00 2024-05-23 16:37:59 [facility] 1..840.114 350.1.13.10 4.2.7.2.686 [id number] [facility] 2024-04-14 16:00:00 2024-04-14 16:00:00 Outpatient R BISHNU MATTSudarshan GOETZ MIRANDA [facility] [id number] [facility] 2024-03-31 00:00:00 2024-03-31 14:30:45 Letter (Out) Lo Ford [facility] SOL[facility] 1..840.114 350.1.13.10 4.2.7.2.686 [id number] [facility] 2024-03-31 13:40:00 2024-03-31 14:28:28 Outpatient R LO FORD [facility] [id number] [facility] 2024-03-31 13:40:00 2024-03-31 14:28:28 [facility] 1..840.114 350.1.13.10 4.2.7.2.686 [id number] [facility] 2024-03-22 15:30:00 2024-03-22 15:30:00 [facility] [id number] [facility] 2024-02-16 00:00:00 2024-03-18 18:17:37 Patient Secure Mslaurita Castle Matt [facility] N[facility] BUILD[facility] 1..840.114 350.1.13.10 4.2.7.2.686 [id number] [facility] 2024-03-14 13:30:00 2024-03-14 13:30:00 Outpatient R ROBERTO TREVIÑO [facility] [id number] [facility] 2024-03-08 16:00:00 2024-03-08 16:00:00 Outpatient R CONNIE TITUS [facility] [id number] [facility] 2024-03-07 00:00:00 2024-03-08 09:48:36 Telephone Connie Titus [facility] 1..840.114 350.1.13.10 4.2.7.2.686 [id number] [facility] 2024-03-08 08:00:00 2024-03-08 08:00:00 [facility] [id number] [facility] 2024-03-06 00:00:00 2024-03-07 09:03:59 Telephone Connie Titus [facility] SOL[facility] 1.2.840.114 350.1.13.10 4.2.7.2.686 [id number] [facility] 2024-03-06 00:00:00 2024-03-06 12:52:24 Telephone Connie Titus [facility] 1.2.840.114 350.1.13.10 4.2.7.2.686 [id number] [facility] 2024-03-06 00:00:00 2024-03-06 12:40:38 Telephone Tin [facility] 1.2.840.114 350.1.13.10 4.2.7.2.686 [id number] [facility] [facility] 2024-02-23 15:30:00 2024-02-23 15:30:00 [facility] [id number] [facility] 2024-02-21 00:00:00 2024-02-22 09:37:16 Telephone Tin [facility] 1.2.840.114 350.1.13.10 4.2.7.2.686 [id number] 059 [id number] [facility] 2024-02-21 00:00:00 2024-02-21 16:30:42 Telephone Tin [facility] 1.2.840.114 350.1.13.10 4.2.7.2.686 [id number] 059 [id number] [facility] 2024-01-18 00:00:00 2024-02-19 18:20:35 Patient Secure Msg Doctor Unassigned, [place] [facility] 1.2.840.114 350.1.13.10 4.2.7.2.686 [id number] [facility] 2024-02-17 00:00:00 2024-02-17 10:50:27 [facility] 1.2.840.114 350.1.13.10 4.2.7.2.686 [id number] 059 [id number] [facility] 2024-02-16 09:02:21 2024-02-16 23:59:00 [facility] [id number] [facility] 2024-02-16 09:02:21 2024-02-16 23:59:00 [facility] 1.2840.114 350.1.13.10 4.2.7.2.686 [id number] [facility] 2024-02-16 00:00:00 2024-02-16 16:00:04 [facility] 1.2.840.114 350.1.13.10 4.2.7.2.686 [id number] 059 [id number] [facility] 2024-02-02 14:00:00 2024-02-02 14:00:00 Outpatient R BONITA MCCURDY [facility] [id number] [facility] 2023-12-22 00:00:00 2024-01-22 18:15:24 Patient Secure Msg [facility] 1.2.840.114 350.1.13.10 4.2.7.2.686 [id number] 059 [id number] [facility] 2024-01-20 00:00:00 2024-01-20 11:09:02 Telephone Connie Titus Matt [facility] MED[facility] OFFICE BUILDING 1.2.840.114 350.1.13.10 4.2.7.2.686 [id number] [facility] 2024-01-18 15:30:00 2024-01-18 15:30:00 Outpatient R TIN [facility] [id number] [facility] 2024-01-18 00:00:00 2024-01-18 15:13:26 Telephone Tin [facility] 1.2.840.114 350.1.13.10 4.2.7.2.686 [id number] 059 [id number] [facility] 2024-01-18 00:00:00 2024-01-18 13:41:58 Telephone Connie Titus Matt [facility] MEDICAL OFFICE BUILDING 1.2.840.114 350.1.13.10 4.2.7.2.686 [id number] 044 [id number] [facility] 2024-01-18 00:00:00 2024-01-18 13:21:31 Letter (Out) [facility] 1.2.840.114 350.1.13.10 4.2.7.2.686 [id number] 019 [id number] [facility] 2024-01-06 00:00:00 2024-01-06 15:22:07 Telephone Tin [facility] 1.2.840.114 350.1.13.10 4.2.7.2.686 [id number] 059 [id number] [facility] 2024-01-05 00:00:00 2024-01-05 14:29:00 Letter (Out) [facility] 1.2.840.114 350.1.13.10 4.2.7.2.686 [id number] [facility] 2024-01-05 13:30:00 2024-01-05 13:30:00 Outpatient R SHAHZAD ALLEN [facility] [id number] [facility] 2024-01-03 00:00:00 2024-01-04 10:10:03 Telephone Hudson Roberto [facility] 1.2840.114 350.1.13.10 4.2.7.2.686 [id number] [facility] 2023-12-31 15:20:00 2023-12-31 15:40:16 Outpatient R CONNIE TITUS [facility] [id number] [facility] 2023-12-31 15:20:00 2023-12-31 15:40:16 Office Visit Connie Titus [facility] SOL?[facility] 1.20.114 350.1.13.10 4.2.7.2.686 [id number] 044 [id number] [facility] 2023-12-30 00:00:00 2023-12-30 14:09:23 Telephone [place] Roberto [facility] SOL?[facility] OFFICE BUILDING 1.20.114 350.1.13.10 4.2.7.2.686 [id number] 044 [id number] [facility] 2023-12-30 00:00:00 2023-12-30 12:24:55 Telephone Connie Titus [facility] 1.20.114 350.1.13.10 4.2.7.2.686 [id number] [facility] 2023-12-28 00:00:00 2023-12-29 15:12:30 Telephone Matt Castle [facility] 1.2840.114 350.1.13.10 4.2.7.2.686 [id number] [id number] [facility] 2023-12-29 13:40:00 2023-12-29 13:57:52 [facility] [id number] [facility] 2023-12-29 13:40:00 2023-12-29 13:57:52 [facility] 1.2.840.114 350.1.13.10 4.2.7.2.686 [id number] 059 [id number] [facility] 2023-12-27 00:00:00 2023-12-28 15:20:14 Telephone Connie Titus [facility] MEDICAL OFFICE BUILDING 1.2.840.114 350.1.13.10 4.2.7.2.686 [id number] [id number] [facility] 2023-12-24 00:00:00 2023-12-28 10:14:22 Telephone Tin [facility] BUILDING 1.2.840.114 350.1.13.10 4.2.7.2.686 [id number] 059 [id number] [facility] 2023-12-27 00:00:00 2023-12-27 14:37:47 [facility] 1.2.840.114 350.1.13.10 4.2.7.2.686 [id number] 059 [id number] [facility] 2023-11-24 00:00:00 2023-12-25 18:04:19 Patient Secure Msg Doctor Unassigned, [place] [facility] 1.2.840.114 350.1.13.10 4.2.7.2.686 [id number] 044 [id number] [facility] 2023-12-24 00:00:00 2023-12-24 15:09:58 Telephone Ariela , Connie M [facility] 1.2.840.114 350.1.13.10 4.2.7.2.686 [id number] [id number] [facility] 2023-12-23 00:00:00 2023-12-23 15:16:05 Telephone Tin [facility] BUILDING 1.2.840.114 350.1.13.10 4.2.7.2.686 [id number] [facility] 2023-12-23 11:30:00 2023-12-23 12:35:00 Emergency X AV[facility]IN [facility] [id number] [facility] 2023-12-23 11:30:00 2023-12-23 12:35:00 Emergency Arvin Wynne [facility] 1.2.840.114 350.1.13.10 4.2.7.2.686 [id number] [facility] 2023-12-22 08:55:25 2023-12-22 23:59:00 [facility] [id number] [facility] 2023-12-22 08:55:25 2023-12-22 23:59:00 Hospital Encounter Tin [facility] 1.2.840.114 350.1.13.10 4.2.7.2.686 [id number] [facility] 2023-12-22 00:00:00 2023-12-22 14:14:22 Telephone Tin [facility] 1.2.840.114 350.1.13.10 4.2.7.2.686 [id number] 059 [id number] [facility] 2023-12-17 00:00:00 2023-12-18 11:21:09 [facility] 1.2840.114 350.1.13.10 4.2.7.2.686 [id number] 059 [id number] [facility] 2023-12-16 00:00:00 2023-12-16 15:26:35 Telephone Connie Titus [facility] SOL?[facility] OFFICE BUILDING 1.2840.114 350.1.13.10 4.2.7.2.686 [id number] [id number] [facility] 2023-12-15 16:00:00 2023-12-15 16:00:00 Outpatient ROBERTO ADKINS [facility] [id number] [facility] 2023-12-15 00:00:00 2023-12-15 13:19:13 Telephone [place] Roberto [facility] 1.2840.114 350.1.13.10 4.2.7.2.686 [id number] 044 [id number] [facility] 2023-12-13 00:00:00 2023-12-14 16:08:34 Telephone [place] Roberto [facility] SOL?[facility] MEDICAL OFFICE BUILDING 1.2840.114 350.1.13.10 4.2.7.2.686 [id number] [facility] 2023-12-01 00:00:00 2023-12-01 00:00:00 Outpatient R TIN DAYOCHERYL [facility] [id number] [facility] 2023-11-29 00:00:00 2023-11-29 10:53:10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 r/s appt to a different day. Stella Farrar [facility] 2024-01-18 14:33:03 Patient calling to speak with Stella [facility]SS regarding his Holter monitor. I read off message th at Dr. Castle responded. "Ok to cancel due to cost. Does not mean it is not necessary." Patient understood, and would like a call back from PSS staff to reschedule his Holter monitor. Please advise Margaret Evans [facility] 2024-01-18 13:46:35 Ok to cancel due to cost. Does not mean it is not necessary. [facility] 2024-01-18 13:40:57 Patient notified that magnesium level was not collected with last set of labs completed. He stated would discuss all at next OV with Bonita Mccurdy. No further needs voiced at this time. Gisela Vivar LVN [facility] 2024-01-18 13:39:39 Dr. Castle, I contacted the pt to reschedule and he wants to know if he can disregard the monitor since his echo came back normal? Please advise. Thank you. [facility] 2024-01-18 10:53:34 Dorothy Combs is a 33 year old male that is asking what his magnesium level had been from his Yessenia labs. Please advise. Rosaura Nabil [facility] 2024-01-18 10:46:09 Dorothy Combs is a 33 year old male that is asking to reschedule his appt for a holter monitor today at Dr. Castle's clinic due to not having all of the copay. Please assist/advise. Rosaura Ferrer [facility] 2024-01-06 15:20:35 Patient called because he wanted to know if he needed to have the CT scan done if the echo came back normal. I education patient on the limitations of echo and reasoning for CT scan. Patient verbalized understanding. No further questions at this time. Rosette Garza RN [facility] 2024-01-06 09:47:20 Dorothy Combs is a 33 year old male Pt is requesting call back to discuss results from test Pt can be reached at [phone] Thank you Piedad Luevano [facility] 2024-01-04 10:09:27 Spoke with patient and went over labs again. Patient voiced understanding. Sarah Beth Anthony RN [facility] 2024-01-04 08:35:13 Pt is calling back to ask if he can get a nurse to call him back about his lab results. Stated he wanted to discuss them with a nurse please. Chaparrita Guillory [facility] 2024-01-03 11:06:45 Dorothy Combs is a 33 year old male Pt would like to speak to a nurse about his test results for labs that were done in September. Please call [phone]. Radha Boucher [facility] 2023-12-30 14:08:43 Images from the original note were not included. Discussed the below result with patient. He verbalized understanding. No further questions at this time. JAMARCUS Cartagena 10/18/2023 8:04 AM CDT Liver and kidney fxn normal Vit mildly low can start 600 unit OTC daily Hep C antibodies negative- no current infection HIV negative Thyroid normal A1C normal Isa Michel LVN [facility] 2023-12-30 12:24:17 Spoke with pt, okay'd to be seen without copay Will be billed to pt Mirella Car [facility] 2023-12-30 09:53:06 Dorothy Combs is a 33 year old male. Patient is wanting to verify if he is required to pay copay for tomorrows visit. Maryana Herrera [facility] 2023-12-30 09:50:02 Dorothy Combs is a 33 year old male. Patient is calling asking for a nurse to call him to go over his lab results from September he has a few Questions. Maryana Herrera [facility] 2023-12-29 15:11:14 Patient had appointment with cardio Dr Castle today, call to patient to verify his questions were answered, verbalized yes , no further questions at this time Samara Smith RN [facility] 2023-12-28 15:19:21 Pt notified Mirella Car [facility] 2023-12-28 14:12:22 Spoke with pt who wanted to have nurse call him back about echo. Please advise Stacey Denis [facility] 2023-12-28 11:01:45 Patient needs to be seen thanks T [facility] 2023-12-28 10:10:55 Patient is requesting to be billed for his visit on 12/31/23. Please let PSS know if approved. He cannot pay on Wednesday [facility] 2023-12-28 10:10:26 Spoke with patient. He just wanted to know the purpose of tomorrow's visit. Chart reviewed, appointment was made due to patient having additional questions and concerns about his echo findings and heart rates. Advised patient that appointment could be rescheduled to after the completion of the holter monitor. Patient prefers to keep appointment scheduled for tomorrow. Advised him to bring his HR and BP log. He has no further questions or concerns at this time. Rosette Garza RN [facility] 2023-12-27 14:35:35 Notified pt he can still be seen due to it being medically necessary and payment will be deferred and billed to pt. Thank you.\\ Nicol Rain [facility] 2023-12-27 14:18:47 Dorothy Combs is a 33 year old male Pt called regarding wanting discuss with clinic on if there is anything that he can do regarding copay and how much he will need to pay. Please advise. Rob Jeffers [facility] 2023-12-27 14:03:42 If he wants to be seen, I will see him. [facility] 2023-12-27 12:41:50 Patient is not able to make his copay, Is it medically necessary to see this patient at this time or would we need to reschedule this appointment? We are needing approval from provider or management to defer this payment. Please advise. [facility] 2023-12-27 10:03:50 Copied from [facility] #[id number]. Topic: Appointment - Appointment Request >> Dec 27, 2023 10:02 AM Patient Wallpaper Scraper wrote: Pt calling to see if he can have his co pay waived or if he can pay some of it Reji Briseno [facility] 2023-12-24 15:06:49 Spoke with patient and relayed the information per Dr. Titus. Patient voiced understanding and stated that he will call to make an appointment at a later date. Sarah Beth Anthony RN [facility] 2023-12-24 14:39:14 The patient's echocardiogram was normal. There is nothing on the ultrasound of his heart to explain chest pain. I do recommend that he schedule follow-up with me, I see he was recently in the emergency room with symptoms of chest pain. Please schedule and we can discuss further in an office visit. Thank you [facility] 2023-12-24 13:29:30 Please review and advise. Gisela Vivar LVN [facility] 2023-12-24 12:45:39 Dorothy Combs is a 33 year old male and is calling about his results from his echogram. He is asking for a call back from Dr. Titus office please. Chaparrita Guillory [facility] 2023-12-24 12:21:41 Copied from [facility] #[id number]. Topic: Clinical - Medical Advice >> December 24, 2023 12:21 PM Patient Wallpaper Scraper wrote: Dorothy Combs is a 33 year old male Pt called back to see if nurse was avail to speak Please advise Ladonna Peña Rosendo [facility] 2023-12-24 11:38:42 Copied from [facility] #[id number]. Topic: Clinical - Medical Advice >> December 24, 2023 11:37 AM Patient Wallpaper Scraper wrote: Dorothy Combs is a 33 year old male Pt was calling to speak with Nurse Nabila. He wanted to ask about a troponin test Please advise [facility] 2023-12-23 15:15:26 Reviewed with patient, verbalized understanding Samara Smith RN [facility] 2023-12-23 15:12:47 Patient called asking about the numbers on the echo report. Explained that they are measurements and they are with in the normal ranges, verbalized understanding Samara Smith RN [facility] 2023-12-23 13:40:31 Copied from [facility] #[id number]. Topic: Clinical - Medical Advice >> December 23, 2023 1:39 PM Patient Wallpaper Scraper wrote: Dorothy Combs is a 33 year old male Pt calling to get echo results done on 12/22/23. Pt states he does not recognize the numbers. Please advise. Pt states echo did come back normal he wants to discuss the numbers. Fawad Shelton [facility] 2023-12-23 12:25:37 Patient dc home. Follow up with cardiology as needed. Verbalized understanding. Signed paper work. [facility] 2023-12-23 11:36:40 Went to do EKG however patient said to "give him a couple minutes" as he was speaking on the phone. Alea Grady [facility] 2023-12-23 11:27:22 Patient to ED for chest pain that started at 11 am and came on suddenly. Pain was for less than 5 minutes and has no pain now. He had an echo performed yesterday at Dr. Castle office and reports it was normal. Patient states, "I just get that EKG and then I'll be out of here pretty soon. " Patient seen by different ER's multiple times in the past month. History of anxiety. Vladimir Pierce RN [facility] 2023-12-22 14:12:29 Notified of ECHO results, verbalized understanding Peyman Schneider, Your heart ultrasound is normal. Await heart monitor. Matt Castle MD, [facility], JANUARY Stacker Attendant Division of Cardiovascular Medicine [facility] Samara Smith RN [facility] 2023-12-22 13:11:22 Patient is having trouble seeing BandApp message. Requesting call back with results Tiffany Veloz [facility] 2023-12-22 10:13:42 Copied from [facility] #[id number]. Topic: Clinical - Paperwork/Forms >> December 22, 2023 10:11 AM Patient Wallpaper Scraper wrote: Dorothy Combs is a 33 year old male is requesting work excuse for today's OV be uploaded to [employer] Georgina Lakeford [facility] 2023-12-17 16:23:51 He no showed for ECHO Plz schedule Holter [facility] 2023-12-17 16:10:18 Patient calling regarding HR fluctuating from 80-99, Stated he had been to the ER 3x. States he has anxiety, has been consuming caffeine drinks, soda , tea. He asked for a monitor. Appointment with Dr Castle made for 12/30/23, discussed cutting out the caffeine , relaxation techniques to see if that helped. ER precautions provided. Verbalized understanding Samara Smith RN [facility] 2023-12-17 14:53:58 Images from the original note were not included. T [facility] 2023-12-17 14:49:[address] Castle . Thank you Dorothy Combs is a 33 year old male Pt calling stating he has been in the ER 3x within the last month. Per pt, his EKG & blood work came back normal but it is believed that what he is experiencing is due to high anxiety. Pt states he is wanting to be checked to make sure everything is okay anyways. Pt is requesting to have an ultrasound done on his chest or a heart monitor placed. Pt states this is urgent. Please advise. [facility] 2023-12-17 13:17:44 Dorothy Combs is a 33 year old male Pt calling stating he has been in the ER 3x within the last month. Per pt, his EKG & blood work came back normal but it is believed that what he is experiencing is due to high anxiety. Pt states he is wanting to be checked to make sure everything is okay anyways. Pt is requesting to have an ultrasound done on his chest or a heart monitor placed. Pt states this is urgent. Please advise. Narciso Small [facility] [facility] 2023-12-16 15:38:22 Patient has been scheduled. Om[facility] 2023-12-16 15:25:57 Yes please an office visit is required can schedule with me or Roberto, [facility] 2023-12-16 15:17:56 Please review and advise if office visit is needed for orders requested. Maame Lazar RN [facility] 2023-12-16 15:11:42 Dorothy Combs is a 33 year old male Pt called because he has trouble sleeping and would like an order placed to have a sleep study done. He would also like an XR order placed for his chest Please advise. Tavares Aj [facility] 2023-12-15 13:18:30 Patient called back back and cancelled. Omari [facility] 2023-12-15 11:02:51 Dorothy Combs is a 33 year old male Pt is requesting to speak with someone. Rosi Nolan [facility] 2023-12-15 09:02:39 Dorothy Combs is a 33 year old male Patient calling to ensure his copay has been waived and claims he was told it will be today. Please contact [phone] (home) Sina Laureano [facility] 2023-12-14 16:04:38 Please review and notify patient. Thank you. Gisela Vivar LVN [facility] 2023-12-14 15:11:49 I recommend he be seen [facility] 2023-12-14 14:50:06 Please review and advise. BARTOLOME 11/23/23 [facility] 2023-12-14 14:44:11 Patient is calling again wanting to know what he is needing to do. Maryana Herrera [facility] 2023-12-14 12:01:14 Dorothy Combs is a 33 year old male Pt calling requesting update on said matter [phone] (home) Danial Roman [facility] 2023-12-14 10:15:55 Please advise if you'd like to see pt tomorrow or reschedule. [facility] 2023-12-14 09:03:13 Images from the original note were not included. Pt cannot pay his $40 copay tomorrow. Can you let PSS know if it is safe to reschedule or if it is medically nessisary to see this pt. BARTOLOME NOTES: Mirella Car [facility] 2023-12-13 11:06:41 Dorothy Combs is a 33 year old male Pt has an appointment on 12/14 and is asking if he can pay the copay at a later date. He would like a call back at [phone]. Radha Boucher [facility] 2023-11-29 10:53:01 Forms pending Provider review Gisela Vivar LVN [facility] 2023-11-29 09:56:39 Received radiology services report from [facility] and have placed in provider's box. Marce Perdomo [facility] 2023-11-26 10:20:00 Addended by: MATT CASTLE MD on: 12/17/2023 04:23 PM Modules accepted: Orders [facility] 2023-11-25 13:36:00 Regarding: Pt is experiencing chest pains x 1 day off and on ----- Message from Eduard Becker sent at 11/25/2023 1:36 PM CDT ----- Pt is experiencing chest pains x 1 day off and on Cristina Mccurdy RN [facility] 2023-11-25 13:36:00 Adult Triage Assessment Last Clinic Visit: 11/23/23 Family Medicine for anxiety Primary Symptom: Chest pain Onset / Duration: earlier today ~1000 Location / Description: right sided Pain / Severity: 7/10 intermittent, tingling Associated Symptoms: better with activity, denies difficulty breathing, sweating Fever / Method: deferred for 911 symptoms Hydration: deferred for 911 symptoms Treatment so far: deferred for 911 symptoms Effect on ADL's: deferred for 911 symptoms LMP: n/a Pre-existing condition / Immunocompromised: per chart: Right ankle pain Attention deficit hyperactivity disorder (ADHD), unspecified ADHD type Male pattern baldness Anxiety and depression Mood disorder Dorothy Combs is a 33 year old male who calls with complaints of intermittent chest pain since 1000 today. Chest pain lasts less than 5 minutes but endorses current sweating. Pt was on his way to [facility] PCP's office, but encouraged to seek ED at this time, if he can safely make it to ED. Advised our protocol would want him to call 911 now. Pt verbalized understanding, denies other questions at this time. Call back warnings given. Cristina Mccurdy RN [facility] Nurse Triage Reason for Disposition Visible sweat on face or sweat dripping down face Protocols used: Chest [id number] [facility] 2023-11-25 13:36:00 Agree with ED eval [facility] 2023-11-24 08:03:13 Mr. Combs, Your referral to Psych was placed in September. It is authorized. Please reach out to the [facility] Referral Department for scheduling assistance at [phone]. Regards, Isa Michel LVN [facility] [address] [place] [address] 11/24/2023, 8:02 AM Isa Michel LVN [facility] 2023-11-23 16:26:20 Copied from [facility] #[id number]. Topic: Referral Status >> Nov 23, 2023 4:23 PM Patient Wallpaper Scraper wrote: Pt called and states that Dr. Titus was going to put in a referral for psychiatry. He is wanting to go somewhere local if possible. Please advise. Rossy Jiang [facility] 2023-11-22 08:00:24 Patient canceled appt on 11/17/23 Anabel Ortega [facility] 2023-11-22 07:07:51 Please review and close. Rosaura Ferrer [facility] 2023-11-16 11:00:47 Ok to see pt -FAMILY MEDICINE STAFF [facility] 2023-11-15 09:14:29 Please review and advise Isa Michel SUSTAINABLE DESIGN CONSULTANT [facility] 2023-11-15 09:00:33 I did notify pt of financial policy, but pt is having a lot of leg pain and is asking if he can still be seen. Is this pt okay'd to be seen or is it safe to reschedule. Thank you Mirella Car [facility] 2023-11-15 08:21:06 Copied from [facility] #[id number]. Topic: Clinical - Medical Advice >> Nov 15, 2023 8:19 AM Patient Wallpaper Scraper wrote: Dorothy Combs is a 33 year old male that is scheduled for an appt on 11/17/23. The pt is asking if he can pay his copay next week. Please advise. [facility] 2023-10-15 15:45:00 Images from the original note were not included. Venipuncture collection performed by clean technique on the left anticubitus. Total of 1 attempts were made. Slight pressure and a bandage/dressing were applied to the site(s). The patient experienced no complications. The following specimens were processed according to instructions and sent to [facility] laboratories per lab order on 10/15/2023: LT BLUE SST 4 RED LAV 2 PPT DK GREEN (LiHep) DK GREEN (SodH) PANTOJA DK BLUE (K2) 1 DK BLUE (S) ACD Blood Culture NIPT/NTD T [facility]
--- NOTE | 2024-11-29 00:14 | EDPHYS ---
Physician Documentation [facility] Name: Wyatt Gleason Age: 34 yrs Sex: Male : 1990 Arrival Date: 11/28/2024 Time: 22:36 Bed 11 Private MD: ED Physician Luigi Almaguer HPI: 11/28 22:40 This 34 yrs old Male presents to ER via Unassigned with complaints of Sore Throat. kb 22:40 Pt is a 34 year old male who presents for sores in mouth and sore throat that started kb about 2 weeks ago. States the pain is worse with swallowing. Denies fever. . Historical: - Allergies: 22:51 No Known Allergies; br2 - PMHx: 22:51 None; br2 - Immunization history:: Adult Immunizations up to date. - Infectious Disease History:: Denies. - Social history:: Smoking status: Patient reports the use of cigarette tobacco products, smokes 6 packs per day, Patient uses alcohol, but reports only rare drinking. Patient/guardian denies using street drugs. ROS: 22:41 Constitutional: As per HPI kb Exam: 22:41 Constitutional: This is a well developed, well nourished patient who is awake, alert, kb and in no acute distress. Head/Face: Normocephalic, atraumatic. Cardiovascular: Regular rate Respiratory: Respirations even and unlabored. No increased work of breathing. Talking in full sentences Skin: Warm, dry with normal turgor. Normal color. MS/ Extremity: Pulses equal, no cyanosis. Neurovascular intact. Full, normal range of motion. Neuro: Awake and alert, GCS 15, oriented to person, place, time, and situation. 22:41 ENT: Posterior pharynx: Airway: normal, no evidence of obstruction, Tonsils: bilaterally enlarged, with erythema, Uvula: normal, midline, swelling, that is moderate, erythema, that is moderate, Vital Signs: 22:48 BP 138 / 87; Pulse 86 RA; Resp 18; Temp 97.2; Pulse Ox 100% on R/A; Weight 95.71 kg; br2 Height 5 ft. 9 in. ; Pain 8/10; 11/29 00:30 BP 128 / 74; Pulse 81; Resp 16 S; Temp 98.3(O); Pulse Ox 100% on R/A; ha1 11/28 22:48 Body Mass Index 31.16 (95.71 kg, 175.26 cm) br2 11/28 22:48 Pain Scale: Adult br2 MDM: 11/28 22:38 Medical Screening Exam initiated 22:41 Data reviewed: vital signs, nurses notes. 22:41 Historians other than the Patient: Parent: mother. kb 11/29 00:13 Differential diagnosis: apthous ulcer, pharyngitis, tonsillitis, strep, station captain. kb Counseling: I had a detailed discussion with the patient and/or guardian regarding the historical points, exam findings, and any diagnostic results supporting the discharge/admit diagnosis, lab results, the need for outpatient follow up, a family practitioner, to return to the emergency department if symptoms worsen or persist or if there are any questions or concerns that arise at home. 11/28 22:43 Order name: Group A Streptococcus Rapid; Complete Time: 00:13 kb 11/29 00:14 Order name: Throat Culture EDMS Administered Medications: No medications were administered Disposition: 21:25 Co-signature as Attending Physician, Luiig Almaguer MD I agree with the assessment sp4 and plan of care. I reviewed the patient's care provided by the Advanced Practice Provider and agree with the diagnosis and treatment plan. Disposition Summary: 11/29/24 00:14 Discharge Ordered Notes: Location: Home kb Condition: Stable kb Diagnosis - Acute tonsillitis, unspecified kb Followup: kb - With: Emergency Department - When: As needed - Reason: Worsening of condition Followup: kb - With: Private Physician - When: 2 - 3 days - Reason: Recheck today's complaints, Continuance of care, Re-evaluation by your physician Discharge Instructions: - Discharge Summary Sheet kb - Tonsillitis, Jero-[id number] kb Forms: - Medication Reconciliation Form kb - Antibiotic Education kb - Prescription Opioid Use kb - Patient Portal Instructions kb - Leadership Thank You Letter kb Prescriptions: - Augmentin 875-125 mg Oral Tablet - take 1 tablet ORAL route every 12 hours for 10 days; 20 tablet; Refills: 0, kb Product Selection Permitted Signatures: Dispatcher [facility] EDMS Rhona Jackson FNP-C FNP-Ckb Potepalov, Sergey, MD MD sp4 [place], Emily, RN RN br2
--- NOTE | 2024-11-29 00:14 | ER ---
Nurse's Notes [facility] Name: Wyatt Gleason Age: 34 yrs Sex: Male : 1990 Arrival Date: 11/28/2024 Time: 22:36 Bed 11 Private MD: Diagnosis: Acute tonsillitis, unspecified Presentation: 11/28 22:48 Chief complaint: Patient states: SORE THROAT FOR 2 1/2 WEEKS..PAIN TO SWALLOW. br2 Coronavirus screen: Client denies travel out of the [place] in the last 14 days. Ebola Screen: Patient denies exposure to infectious person. Initial Sepsis Screen: Does the patient meet any 2 criteria? No. Patient's initial sepsis screen is negative. Does the patient have a suspected source of infection? No. Patient's initial sepsis screen is negative. Risk Assessment: Do you want to hurt yourself or someone else? Patient reports no desire to harm self or others. Onset of symptoms was November 09, 2024. 22:48 Method Of Arrival: Ambulatory br2 22:48 Acuity: ERNESTO 4 br2 Triage Assessment: 22:51 General: Appears in no apparent distress. comfortable, Behavior is calm, cooperative. br2 Pain: Complains of pain in uvula. EENT: Reports difficulty swallowing. Historical: - Allergies: 22:51 No Known Allergies; br2 - PMHx: 22:51 None; br2 - Immunization history:: Adult Immunizations up to date. - Infectious Disease History:: Denies. - Social history:: Smoking status: Patient reports the use of cigarette tobacco products, smokes 6 packs per day, Patient uses alcohol, but reports only rare drinking. Patient/guardian denies using street drugs. Screenin:48 [facility] ED Fall Risk Assessment (Adult) History of falling in the last 3 months, br2 including since admission No falls in past 3 months (0 pts) Confusion or Disorientation No (0 pts) Intoxicated or Sedated No (0 pts) Impaired Gait No (0 pts) Mobility Assist Device Used No (0 pt) Altered Elimination No (0 pt) Score/Fall Risk Level 0 - 2 = Low Risk Oriented to surroundings. Abuse screen: Denies threats or abuse. Denies injuries from another. Nutritional screening: No deficits noted. Tuberculosis screening: No symptoms or risk factors identified. Assessment: 22:41 Reassessment: SEE TRIAGE ASSESSMENT. Respiratory: Airway is patent Respiratory effort br2 is even, unlabored, Respiratory pattern is regular, symmetrical. EENT: Throat is clear Reports nasal congestion. 11/29 00:09 Reassessment: Patient and/or family updated on plan of care and expected duration. Pain br2 level reassessed. Patient is alert, oriented x 3, equal unlabored respirations, skin warm/dry/pink. Patient denies pain at this time. 00:37 Reassessment: Patient and/or family updated on plan of care and expected duration. Pain ha1 level reassessed. Patient is alert, oriented x 3, equal unlabored respirations, skin warm/dry/pink. Vital Signs: 11/28 22:48 BP 138 / 87; Pulse 86 RA; Resp 18; Temp 97.2; Pulse Ox 100% on R/A; Weight 95.71 kg; br2 Height 5 ft. 9 in. ; Pain 8/10; 11/29 00:30 BP 128 / 74; Pulse 81; Resp 16 S; Temp 98.3(O); Pulse Ox 100% on R/A; ha1 11/28 22:48 Body Mass Index 31.16 (95.71 kg, 175.26 cm) br2 11/28 22:48 Pain Scale: Adult br2 ED Course: 11/28 22:37 Patient arrived in ED. im 22:38 Rhona Jackson FNP-C [facility] kb 22:38 Luigi Almaguer MD is Attending Physician. kb 22:47 Emily Rowe, MESFIN is Primary Nurse. br2 22:48 Patient has correct armband on for positive identification. Bed in low position. Call br2 light in reach. Side rails up X 1. Provided Education on: PLAN OF CARE. 22:51 Triage completed. br2 22:51 Arm band placed on right wrist. br2 11/29 00:10 Group A Streptococcus Rapid Sent. br2 00:38 No provider procedures requiring assistance completed. ha1 00:40 Patient did not have IV access during this emergency room visit. ha1 Administered Medications: No medications were administered Medication: 00:40 VIS not applicable for this client. ha1 Outcome: 00:14 Discharge ordered by . kb 00:40 Discharged to home ambulatory, with family, ha1 00:40 Condition: stable 00:40 Discharge instructions given to patient, family, Instructed on discharge instructions, follow up and referral plans. medication usage, Demonstrated understanding of instructions, follow-up care, medications, Prescriptions given X 1, 00:41 Patient left the ED. ha1 Signatures: Rhona Jackson, ARTIST AGENT-C JAMARCUS-Kathryn Willis RN RN ha1 Lily Rivas Belinda, RN RN br2 Corrections: (The following items were deleted from the chart) 00:39 05/06 22:48 Inserted saline lock: 20 gauge in right antecubital area, using aseptic ha1 technique. Blood collected. Flushed with 10 mL NS br2
[2024-11-29 07:28] VITALS: O2SAT 100
[2024-11-29 07:30] VITALS: BP 138/87; TEMP 97.2
== END 2024-11-29 00:41 | disposition home or self-care (01) ==
LOC: ER 22:36
DX: J03.90 Acute tonsillitis, unspecified (principal); F17.210 Nicotine dependence, cigarettes, uncomplicated
CPT/HCPCS: 36415; 87070; 99283